=== PATIENT | female | born 1995 | race African-American/Black ===

== ENCOUNTER 2020-07-16 18:17 | Observation (INO) | payer BC, MEDICAID, SELFPAY ==
--- NOTE | ~2020-07-16 | XR_ITS ---
EXAMINATION: XR chest 1V portable DATE: 07/16/2020 19:00 INDICATION: Shortness of breath. Pulmonary hypertension. TECHNIQUE: frontal view of the chest was obtained. COMPARISON: 03/29/2019 FINDINGS: The lungs remain clear with no focal airspace opacities, pulmonary edema, pleural effusion or pneumot horax. Cardiomegaly. Again seen is enlargement of the central pulmonary arteries consistent with give n history of pulmonary arterial hypertension. IMPRESSION: 1. No acute cardiopulmonary disease. 2. Cardiomegaly with enlargement of the central pulmonary arteries consistent with given history of p ulmonary arterial hypertension. Reviewed, dictated and finalized at location H. T TEACHER IMPRESSION: 1. No acute cardiopulmonary disease. 2. Cardiomegaly with enlargement of the central pulmonary arteries consistent w ith given history of pulmonary arterial hypertension.
--- NOTE | ~2020-07-16 | CT_ITS ---
EXAMINATION: CTA chest PE protocol DATE: 07/16/2020 21:02 INDICATION: Chest pain and dyspnea TECHNIQUE: Computed tomography (CT) pulmonary angiogram of the chest was performed with 100 mL Omnipa que-350 intravenous contrast. Additional 3D reconstructions utilizing coronal maximum intensity proje ction (MIP) were performed. Automated exposure control and iterative reconstruction technique were em ployed. The dose-length product was 922.52 mGy-cm. COMPARISON: None FINDINGS: Excellent contrast opacification of the pulmonary arteries. There is prominent streak artifact from d ense contrast in the superior vena cava and right atrium as well as severe scattered respiratory nhi on artifact which together significantly decreases sensitivity and specificity throughout the majorit y of the pulmonary arteries in both lungs. Definitively no central pulmonary emboli in the main, loba r and in the upper lobar segmental pulmonary arteries. The majority of the pulmonary arteries demonst rate alternating bands of enhancement and low-attenuation which favors artifact. No definitive pulmon juancarlos emboli identified. There are multiple small nodular regions of groundglass opacity scattered thro ughout both lungs most prominent in the bilateral upper and left lower lobes which are suspicious for pneumonia. No evidence septal line thickening to suggest pulmonary edema. No pleural effusion or pne umothorax. Cardiomegaly. No pericardial effusion. Chronic enlargement of the central pulmonary arteri es consistent with given history of pulmonary hypertension. Thoracic aorta is normal in caliber with no dissection. No pathologically enlarged thoracic lymphadenopathy. Stranding and small foci of gas i n the subcutaneous fat at the anterior midline of the upper abdomen likely related to a subcutaneous injection. Visualized upper abdomen and bones are otherwise unremarkable. IMPRESSION: 1. Markedly limited study for pulmonary embolism due to large amount of streak and respiratory motion artifact. No definitive pulmonary identified. 2. Multiple scattered nodular groundglass opacities consistent with multifocal pneumonia. 3. Cardiomegaly with enlargement of the central pulmonary arteries consistent with known history of p ulmonary arterial hypertension. Reviewed, dictated and finalized at location H. NDER DYER IMPRESSION: 1. Markedly limited study for pulmonary embolism due to large amount of streak and respiratory motion artifact. No definitive pulmonary identified. 2. Multiple scattered nodular groundglass opacities consistent with multifocal pneumonia. 3. Cardiomegaly with enlargement of the central pulmonary arteries consistent w ith known history of pulmonary arterial hypertension.
[2020-07-16 18:20] VITALS: BP 133/64; PULSE 86; RESP 14; TEMP 36.1; O2SAT 99
[2020-07-16 18:26] VITALS: PULSE 95
--- NOTE | 2020-07-16 18:29 | ECG_ITS ---
Measurements Intervals [place] Rate: 77 P: 47 MA: 185 QRS: 69 QRSD: 98 T: -24 QT: 390 QTc: 443 Interpretive Statements SINUS RHYTHM ST-T WAVE ABNORMALITY IN ANTERIOR LEADS- CONSIDER ISCHEMIA BASELINE ARTIFACT- I, II, AVR, AVL ABNORMAL ECG Electronically Signed On 07-17-2020 7:19:02 ROTARY KILN OPERATOR by Charanjit Arreola D.O.
[2020-07-16 18:39] LABS: Basophils Percent Auto 0.2 % (0.2-1.2); Eosinophils Absolute Auto 0.1 K/mm3 (0-0.3); Eosinophils Percent Auto 1.1 % (0-4.4); Hematocrit 36.9 % (37.0-47.0); Hemoglobin 12.7 g/dL (12.0-15.0); Immature Granulocyte Absolute 0.01 K/mm3 (0.00-0.031); Immature Granulocyte Percent A 0.2 % (0-0.5); Lymphocytes Absolute Auto 1.78 K/mm3 (0.9-3.2); Lymphocytes Percent Auto 28.1 % (18.3-44.2); Mean Corpuscular HGB Conc 34.4 g/dl (32-36); Mean Corpuscular Hemoglobin 29.6 pg (26-34); Mean Platelet Volume 9.5 fl (7.4-10.4); Monocytes Absolute Auto 0.5 K/mm3 (0.1-0.6); Monocytes Percent Auto 7.4 % (2.6-8.5); Platelet Count Result 361 k/mm3 (150-375); Red Blood Count 4.29 M/mm3 (4.2-5.4); Red Cell Distribution Width 12.8 % (11.5-14.5); White Blood Count 6.3 K/mm3 (4.5-10.0)
--- NOTE | 2020-07-16 18:48 | PC.NURSE ---
Called to add on BNP
[2020-07-16 18:51] LABS: Anion Gap 9 mmol/L (8-16); Blood Urea Nitrogen 6 mg/dL (7-17); Carbon Dioxide 28 mmol/L (22-30); Chloride 102 mmol/L (98-107); Estimated CRCL calculation 168 ml/min; Estimated Glomerular Filt Rate > 60; Glucose 120 mg/dL (65-105); Sodium 139 mmol/L (137-145)
[2020-07-16 18:54] LABS: INR 1.1; Prothrombin Time 14.3 Seconds (11.1-14.7)
[2020-07-16 18:55] LABS: Partial Thromboplastin Time 27.7 SECONDS (22.3-36.8)
[2020-07-16 18:57] LABS: D Dimer 0.31 ug/mL (<0.48)
[2020-07-16 19:03] LABS: Troponin I < 0.012 ng/mL (0.000-0.034)
[2020-07-16 19:15] VITALS: BP 107/87; PULSE 76; RESP 16; O2SAT 98
[2020-07-16 19:29] LABS: NT Pro B Type Natriuretic Pept 67 PG/ML (5-100)
--- NOTE | 2020-07-16 19:58 | ECG_ITS ---
Measurements Intervals [place] Rate: 65 P: 27 VA: 180 QRS: 64 QRSD: 93 T: -26 QT: 403 QTc: 421 Interpretive Statements SINUS RHYTHM WITH MARKED SINUS ARRHYTHMIA ST-T WAVE ABNORMALITY IN ANTERIOR LEADS- CONSIDER ISCHEMIA BASELINE ARTIFACT- I, II, AVR, AVL, V1 ABNORMAL ECG Electronically Signed On 07-17-2020 7:23:30 GENERAL FARMWORKER by Charanjit Arreola D.O.
--- NOTE | 2020-07-16 20:01 | ED.SOB ---
HPI - SOB/Dyspnea General Chief Complaint: Shortness of Breath/Dyspnea Stated Complaint: my breathing feels funny Time Seen by Provider: 07/16/20 19:05 Source: RN notes reviewed History of Present Illness HPI Narrative: Patient presents to emergency department from home for shortness of breath. Patient states that symptoms began approximately 3 days ago. She states that she has a feeling of shortness of breath as well as a chest heaviness that occurs when she lays down flat. She states that the symptoms improve when she sits upright. She states she has had a cough this been nonproductive for the past week. She denies any fevers or chills abdominal pain nausea vomiting or any other symptoms she states she has no current chest pain was sitting up Related Data Home Medications Medication Instructions Recorded Confirmed furosemide 07/16/20 macitentan [Opsumit] mg PO 07/16/20 spironolactone 07/16/20 tadalafil (pulm. hypertension) mg 07/16/20 treprostinil sodium [Remodulin] mg 07/16/20 07/16/20 Allergies Allergy/AdvReac Type Severity Reaction Status Date / Time No Known Allergies Allergy Verified 07/16/20 18:27 Review of Systems Review of Systems: Narrative: Gen.: Denies fevers or chills ENT: Denies congestion Respiratory: Reports shortness of breath CV: Reports cough GI: Denies abdominal pain nausea, emesis or diarrhea denies burning, urgency, frequency or hematuria Musculoskeletal: Denies back pain or muscle pain Neuro: Denies numbness, tingling, weakness or focal weakness Skin: Denies rash Except as documented, all other systems reviewed and negative [facility] Past Medical History Medical History (Updated 07/17/20 @ 01:43 by Alex Castellanos DO) Chronic edema Pulmonary hypertension Social History Social History (Updated 07/16/20 @ 20:02 by Alex Castellanos DO) Smoking status: Never smoker Exam Narrative: Exam Narrative: APPEARANCE: No acute distress, nontoxic, resting in bed EYES: EOMI HEENT: Normocephalic, atraumatic, OMM RESPIRATORY: No respiratory distress Clear to auscultation bilaterally with no rhonchi wheezing or rales. CARDIOVASCULAR: Regular rate and rhythm without murmurs rubs or gallops. ABDOMINAL: Soft, nontender, nondistended, no rebound or guarding MUSCULOSKELETAl: Moves all extremities. No clubbing, cyanosis 2+ edema the bilateral lower extremity NEURO: Awake and alert. Following commands, speech normal, no focal deficits SKIN:: Warm, dry. No rashes lesions or abrasions PSYCHIATRIC: Normal affect/mood, Course Course Emergency Course: Discussed with Dr. Caballero presentation work-up agrees with admission at this time. Request consult to cardiology Dr. Bacon for cardiology presentation work-up discussed EKG changes will follow as inpatient Discussed with patient and family results of workup and diagnosis. Discussed need for admission. Patient and family understand and agree to current treatment plan Vital Signs Vital signs: Vital Signs Temperature 96.9 F L 07/16/20 18:20 Pulse Rate 86 07/16/20 18:20 Respiratory Rate 14 07/16/20 18:20 Blood Pressure 133/64 07/16/20 18:20 Pulse Oximetry 99 07/16/20 18:20 Temperature 96.9 F L 07/16/20 18:20 Pulse Rate 66 07/17/20 00:21 Respiratory Rate 20 07/17/20 00:21 Blood Pressure 144/85 H 07/17/20 00:21 Pulse Oximetry 98 07/17/20 00:21 MDM - SOB/Dyspnea Lab Data Result diagrams: 07/16/20 18:34 07/16/20 18:34 Labs: Lab Results 07/16/20 07/16/20 07/16/20 Range/Units 18:33 18:33 18:34 WBC 6.3 (4.5-10.0) K/mm3 RBC 4.29 (4.2-5.4) M/mm3 Hgb 12.7 (12.0-15.0) g/dL Hct 36.9 L (37.0-47.0) % MCV 86.0 (80-100) fl MCH 29.6 (26-34) pg MCHC 34.4 (32-36) g/dl RDW 12.8 (11.5-14.5) % Plt Count 361 (150-375) k/mm3 MPV 9.5 (7.4-10.4) fl Immature Gran % (Auto) 0.2 (0-0.5) % Neut % (Auto) 63.0 (45.5-73.1) % Lymp
[2020-07-16 21:58] LABS: Troponin I < 0.012 ng/mL (0.000-0.034)
[2020-07-16 22:40] LABS: Lactic Acid Reflex 0.7 mmol/L (0.7-2.1)
[2020-07-16 23:07] VITALS: BP 109/65; PULSE 76; RESP 20; O2SAT 98
[2020-07-16] MEDS: POTASSIUM CHLORIDE 20 MEQ TABLET 40 MEQ PO (23:20)
[2020-07-16] MEDS: ASPIRIN 81 MG CHEWABLE TABLET 324 MG PO (23:20)
[2020-07-17 00:03] VITALS: BMI 47.0
[2020-07-17 00:21] VITALS: BP 144/85; PULSE 66; RESP 20; O2SAT 98
--- NOTE | 2020-07-17 00:24 | ADMGEN ---
This patient, Stephanie Simpson, was admitted to IMU Room 211-01 @ 0003 from the Emergency department. Patient/family oriented to hospital policies and general routines including ID bracelet, bed and alarms, visiting hours, pain management, procedures, bathroom and other care routines, personal items, smoking policy, room service/diet, and visiting hours. Information on how to activate the Rapid Response Team has been discussed. Patient/Family are encouraged to report perceived risks to care and to ask questions if they do not understand what they are told or what they should do.
--- NOTE | 2020-07-17 00:29 | PM.IMHP ---
H&P: HPI History of Present Illness Date/Time: 07/17/20 00:29 Chief complaint: covid 19 suspected, abnormal ekg, chest pain Narrative: This is a pleasant 25 year old female with known pulmonary hypertension and chronic edema who presented to the hospital with a complaint of ongoing shortness of breath with associated pleuritic chest pain. She complains of having chest heaviness with deep breathing. She has had respiratory symptoms for almost two weeks now which include a nonproductive cough, congestion, shortness of breath, chills, body aches, and loss of taste. She was tested at Urgent Care for COVID-19 ten days ago which was negative at that time. The patient was evaluated in the ER tonight and found to have an abnormal EKG with flipped T waves in precordial leads. Routine labs in the ER have been unremarkable. CTA Chest did not demonstrate any pulmonary embolism. Her first two troponins have been negative. The patient is not requiring any supplemental oxygen and is comfortable in no acute distress. ER provider has consulted Cardiology, Dr. Bacon and we have been asked to admit the patient to the hospital for her abnormal EKG. She denies any smoking history. Review of Systems Review of Systems: All systems reviewed & are unremarkable except as noted in HPI and below PMFSH Past Medical History Medical History Chronic edema Pulmonary hypertension Family History Family History Mother Thyroid cancer Social History Social History Smoking status: Never smoker Second hand tobacco smoke exposure: No Alcohol intake: never Substance use: never Gender identity (if verbalized by the patient): Female Spiritual care concerns: No Comments past surgical history is reviewed and noncontributory. Meds Home Medications and Allergies Home Medications Medication Instructions Recorded Confirmed Type Opsumit mg PO 07/16/20 History furosemide [Lasix] 20 mg PO BID 07/16/20 07/17/20 History spironolactone [Aldactone] 25 mg PO BID 07/16/20 07/17/20 History tadalafil (pulm. hypertension) 20 mg PO BID 07/16/20 07/17/20 History [Adcirca] treprostinil sodium [Remodulin] 10 mg 07/16/20 History Allergies Allergy/AdvReac Type Severity Reaction Status Date / Time No Known Allergies Allergy Verified 07/17/20 04:00 Vital Signs Vital Signs - 24 hr 07/16/20 18:20 07/16/20 18:26 07/16/20 19:15 Temperature 36.1 C L Pulse Rate 86 95 76 Respiratory Rate 14 16 Blood Pressure 133/64 107/87 Pulse Oximetry 99 98 07/16/20 23:07 07/17/20 00:21 Temperature Pulse Rate 76 66 Respiratory Rate 20 20 Blood Pressure 109/65 144/85 H Pulse Oximetry 98 98 Exam Const: General: cooperative, no acute distress, alert and awake Nutritional Appearance: obese morbidly obese Orientation/consciousness: patient oriented x3 HENMT: Head: normal to inspection General nose exam: Normal external nose present Face and sinus: normal facial exam Mouth: Yes Normal oral and palatal mucosa present and Yes oropharynx normal Eyes: Pupils: Equal, round and reactive pupils present EOM: EOMs intact bilaterally Neck: Neck: supple and no JVD Thyroid: thyroid normal Lymphatic: lymphadenopathy not noted Chest: Other: No chest wall discomfort w/ palpation+ Resp: Effort & Inspection: normal respiratory effort Auscultation: clear to auscultation bilaterally Cardio: Rate: regular rate Rhythm: regular rhythm Heart sounds: no murmurs GI: Inspection: normal to inspection Auscultation: normal bowel sounds Skin: General skin exam: normal color and no rashes or lesions noted Neuro: General: patient oriented x3 Cranial nerves: Yes CN's II-XII intact bilaterally and Yes Equal, round and reactive pupils present Speech: normal speech Motor exam (neuro): 5/5 m
[2020-07-17 02:00] VITALS: PULSE 81
[2020-07-17 02:13] LABS: Basophils Percent Auto 0.2 % (0.2-1.2); Eosinophils Absolute Auto 0.1 K/mm3 (0-0.3); Eosinophils Percent Auto 1.8 % (0-4.4); Hematocrit 37.4 % (37.0-47.0); Hemoglobin 12.6 g/dL (12.0-15.0); Immature Granulocyte Absolute 0.02 K/mm3 (0.00-0.031); Immature Granulocyte Percent A 0.3 % (0-0.5); Lymphocytes Percent Auto 31.8 % (18.3-44.2); Mean Corpuscular HGB Conc 33.7 g/dl (32-36); Mean Corpuscular Volume 86.2 fl (80-100); Mean Platelet Volume 9.8 fl (7.4-10.4); Monocytes Absolute Auto 0.5 K/mm3 (0.1-0.6); Monocytes Percent Auto 7.5 % (2.6-8.5); Neutrophils Absolute Auto 3.5 K/mm3 (1.3-6.7); Neutrophils Percent Auto 58.4 % (45.5-73.1); Platelet Count Result 368 k/mm3 (150-375); Red Blood Count 4.34 M/mm3 (4.2-5.4); Red Cell Distribution Width 12.9 % (11.5-14.5)
[2020-07-17 02:22] LABS: Anion Gap 8 mmol/L (8-16); Blood Urea Nitrogen 6 mg/dL (7-17); Calcium 9.1 mg/dL (8.4-10.2); Carbon Dioxide 29 mmol/L (22-30); Chloride 101 mmol/L (98-107); Estimated CRCL calculation 168 ml/min; Estimated Glomerular Filt Rate > 60; Glucose 108 mg/dL (65-105); Potassium 3.1 mmol/L (3.4-5.0); Sodium 138 mmol/L (137-145)
[2020-07-17 02:30] LABS: Troponin I < 0.012 ng/mL (0.000-0.034)
[2020-07-17 04:00] VITALS: BP 104/54; PULSE 78; PULSE 86; RESP 18; TEMP 36.6; O2SAT 93
[2020-07-17 06:00] VITALS: PULSE 66
[2020-07-17 08:00] VITALS: BP 120/74; PULSE 77; RESP 18; TEMP 36.3; O2SAT 93
[2020-07-17 08:59] VITALS: O2SAT 96
[2020-07-17] MEDS: ALBUTEROL SULFATE (*SP) AEROSOL 1 PUFF 2 PUFF INHALATION ×2 (08:59→12:00)
--- NOTE | 2020-07-17 10:08 | PM.DS ---
DS: Admitting Diagnosis Admitting Diagnosis Admitting Diagnosis: covid 19 suspected, abnormal ekg, chest pain DS: Discharge Diagnosis Discharge Diagnosis (1) Suspected 2019-nCoV infection: Code(s): Z20.828 - Contact with and (suspected) exposure to other viral communicable diseases Status: Acute Assessment and Plan: Ruled in Patient wants to go home after spending the night here. Feels that she can handle at home. (2) Hypokalemia: Code(s): E87.6 - Hypokalemia Status: Acute Assessment and Plan: Replaced (3) Pleuritic chest pain: Code(s): R07.81 - Pleurodynia Status: Acute Assessment and Plan: Likely secondary to Covid Stable. (4) Pulmonary hypertension: Code(s): I27.20 - Pulmonary hypertension, unspecified Status: Chronic Assessment and Plan: Not requiring oxygen at this time. DS: Summary Hospital Course Reason for hospitalization: Was placed on observation overnight for supportive care as patient was having some sob, general malaise and fevers. In the morning she was feeling much better and was comfortable on going home. Status at Discharge Cognitive/behavioral status at discharge: Good. Functional status at discharge: independent ambulation Overall status at discharge: patient is progressing back to baseline Time Spent with Patient Time attestation: Total time spent providing and/or coordinating discharge services: Time spent: Greater than 30 minutes DS: Data Data Completed and Pending Labs on day of discharge: Labs from last 24 hours 07/17/20 07/17/20 07/17/20 01:56 01:56 01:52 WBC 6.0 RBC 4.34 Hgb 12.6 Hct 37.4 MCV 86.2 MCH 29.0 MCHC 33.7 RDW 12.9 Plt Count 368 MPV 9.8 Immature Gran % (Auto) 0.3 Neut % (Auto) 58.4 Lymph % (Auto) 31.8 [place] % (Auto) 7.5 Eos % (Auto) 1.8 Baso % (Auto) 0.2 Lymph # (Auto) 1.90 [place] # (Auto) 0.5 Eos # (Auto) 0.1 Baso # (Auto) 0.0 Abs Immat Gran (auto) 0.02 Absolute Neuts (auto) 3.5 Absolute Nucleated RBC 0.0 Nucleated RBC % 0.0 PT INR APTT D-Dimer Sodium 138 Potassium 3.1 L Chloride 101 Carbon Dioxide 29 Anion Gap 8 BUN 6 L Creatinine 0.60 L Estim Creat Clear Calc 168 Estimated GFR > 60 Glucose 108 H Lactic Acid Calcium 9.1 Troponin I < 0.012 NT-Pro-B Natriuret Pep SARS-CoV-2 RNA (RT-PCR) 07/16/20 07/16/20 07/16/20 23:28 22:11 21:30 WBC RBC Hgb Hct MCV MCH MCHC RDW Plt Count MPV Immature Gran % (Auto) Neut % (Auto) Lymph % (Auto) [place] % (Auto) Eos % (Auto) Baso % (Auto) Lymph # (Auto) [place] # (Auto) Eos # (Auto) Baso # (Auto) Abs Immat Gran (auto) Absolute Neuts (auto) Absolute Nucleated RBC Nucleated RBC % PT INR APTT D-Dimer Sodium Potassium Chloride Carbon Dioxide Anion Gap BUN Creatinine Estim Creat Clear Calc Estimated GFR Glucose Lactic Acid 0.7 Calcium Troponin I < 0.012 NT-Pro-B Natriuret Pep SARS-CoV-2 RNA (RT-PCR) Pending 07/16/20 07/16/20 07/16/20 18:34 18:34 18:33 WBC 6.3 RBC 4.29 Hgb 12.7 Hct 36.9 L MCV 86.0 MCH 29.6 MCHC 34.4 RDW 12.8 Plt Count 361 MPV 9.5 Immature Gran % (Auto) 0.2 Neut % (Auto) 63.0 Lymph % (Auto) 28.1 [place] % (Auto) 7.4 Eos % (Auto) 1.1 Baso % (Auto) 0.2 Lymph # (Auto) 1.78 [place] # (Auto) 0.5 Eos # (Auto) 0.1 Baso # (Auto) 0.0 Abs Immat Gran (auto) 0.01 Absolute Neuts (auto) 4.0 Absolute Nucleated RBC 0.0 Nucleated RBC % 0.0 PT INR APTT D-Dimer Sodium 139 Potassium 3.0 L Chloride 102 Carbon Dioxide 28 Anion Gap 9 BUN 6 L Creatinine 0.60 L Estim Creat Clear Calc 168 Estimated GFR > 60 Glucose 120 H Lactic Acid Calci
--- NOTE | 2020-07-17 10:38 | PM.CNCAR ---
Assessment and Plan Assessment and plan (1) Suspected 2019-nCoV infection: Code(s): Z20.828 - Contact with and (suspected) exposure to other viral communicable diseases Status: Acute Assessment and Plan: Very likely COVID infection (2) Hypokalemia: Code(s): E87.6 - Hypokalemia Status: Acute Assessment and Plan: Replaced (3) Pulmonary hypertension: Code(s): I27.20 - Pulmonary hypertension, unspecified Status: Chronic Assessment and Plan: Severe. Followed at [place]. (4) Abnormal EKG: Code(s): R94.31 - Abnormal electrocardiogram [ECG] [EKG] Status: Acute Assessment and Plan: Her EKG ST and T-wave changes are related to her pulmonary hypertension. They are not ischemic from obstructive coronary disease. Her EKG looks similar to an EKG performed in June of 2019 at [place]. Her chest pain is not cardiac in etiology. It is likely pleuritic or musculoskeletal from her coughing. Discontinue the echocardiogram which is ordered and from a cardiac perspective she is okay to go home History of Present Illness History of Present Illness Consult date/time: 07/17/20 10:38 Requesting physician: Alex Castellanos DO Consult reason: Other (Abnormal EKG, chest pain) Reason For Visit: covid 19 suspected, abnormal ekg, chest pain Narrative: Date of service 07/17/2020 Reason for consultation abnormal EKG, chest pain History patient is a 25-year-old female who has idiopathic pulmonary hypertension. It is severe and she follows at [facility]. She came to the hospital because of COVID like symptoms. She has been short of breath as well as cough and congestion with body aches chills and loss of taste for the past 10-14 days. She also had some chest pain. Chest pain was pleuritic and worsened by coughing. EKG was performed which showed anteroseptal T-wave abnormalities. This is thought to be new and therefore she was admitted for further workup. She has COVID pending. She otherwise denies any exertional chest discomfort, syncope, paroxysmal nocturnal dyspnea, orthopnea. She does have intermittent edema but none present. No palpitations. Review of Systems Review of Systems: All systems reviewed & are unremarkable except as noted in HPI and below Constitutional: Constitutional: Reports body ache(s), Reports chills, Reports lethargy and Reports weakness Eyes: Eyes: Denies blurry vision ENT: Reports Normal hearing present Cardiovascular: Cardiovascular: Reports chest pain Respiratory: Respiratory: Reports dyspnea Gastrointestinal: Gastrointestinal: Denies abdominal pain Genitourinary: Genitourinary: Denies flank pain Musculoskeletal: Musculoskeletal: Denies neck pain Integumentary/Breasts: Skin/Breast: Denies dry skin Neurologic: Denies headache(s) Psychiatric: Psychiatric: Denies anxiety Endocrine: Endocrine: Denies fatigue Hematologic/Lymphatic: Hematologic/Lymphatic: Denies easy bleeding Allergic/Immunologic: Allergic/Immunologic: Denies GI upset with certain foods PMFSH Past Medical History Medical History Chronic edema Pulmonary hypertension Family History Family History Mother Thyroid cancer Social History Social History Smoking status: Never smoker Second hand tobacco smoke exposure: No Alcohol intake: never Substance use: never Gender identity (if verbalized by the patient): Female Spiritual care concerns: No Meds Home Medications and Allergies Home Medications Medication Instructions Recorded Confirmed Type furosemide [Lasix] 20 mg PO BID 07/16/20 07/17/20 History macitentan [Opsumit] mg PO 07/16/20 History spironolactone [Aldactone] 25 mg PO BID 07/16/20 07/17/20 History tadalafil (pulm. hypertension) 20 mg PO BID 07/16/20 07/17/20 Histor
[2020-07-17 16:41] LABS: SARS-CoV-2 RNA PCR Positive
== END 2020-07-17 13:03 | disposition home or self-care (01) ==
LOC: ANHED 22:43 → ANHIMU 07-17 01:43
PROVIDERS: Emergency Medicine; Admitting Provider Family Medicine; Emergency Provider Emergency Medicine; Visit Provider Internal Medicine
DX: U07.1 COVID-19 (principal); E87.6 Hypokalemia; I27.20 Pulmonary hypertension, unspecified; R94.31 Abnormal electrocardiogram [ECG] [EKG]; E66.01 Morbid (severe) obesity due to excess calories; Z68.42 Body mass index [BMI] 45.0-49.9, adult
CPT/HCPCS: 36415; 71045; 71275; 80048; 81025; 83605; 83880; 84484; 85025; 85380; 85610; 85730; 87040; 87635; 93005; 94640; 99285; A9270; C9803; G0378; Q9967; U0003

== ENCOUNTER 2025-04-30 10:34 | Emergency (ER) | payer OTHER, SELFPAY ==
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
--- OUTSIDE RECORDS SUMMARY | 2025-04-30 10:37 | XMS_ITS | Clinical Summary ---
Author Organization [facility] Address [address] [place] [address] Phone Care Team Providers Care Rodeo Performer Name Role Phone Unavailable Primary Care Provider Unavailabl e Allergies No known active allergies Medications aspirin (ECOTRIN EC) 325 mg Tablet, Delayed Release (E.C.) Take 1 Tablet (325 mg) by mouth daily. 9 Active Ambrisentan 5 mg Tablet Take 5 mg by mouth daily. 1 Tablet 9 Active furosemide (LASIX) 20 mg tablet Take 1 Tablet (20 mg) by mouth 2 times daily. 30 Tablet 1 9 Active azelastine (ASTELIN) 137 mcg/actuation nasal spray Administer 2 Sprays in each nostril 2 times daily. 30 mL 5 9 Active tadalafil (Adcirca) 20 mg Tablet tablet Take 2 Tablets (40 mg) by mouth daily. 60 Tablet 0 Active Active Problems Problem Noted Date Diagnosed Date THOMPSON (dyspnea on exertion) 03/30/2019 Chest pressure 03/30/2019 Morbid obesity 03/30/2019 Pulmonary hypertension 03/30/2019 Encounters Date Type Department Care Team Description 03/30/2025 External Device Data [facility] ABSTRACTION Provider, Abstract 03/29/2025 External Device Data [facility] ABSTRACTION Provider, Abstract 03/09/2025 External Device Data [facility] ABSTRACTION Provider, Abstract 03/08/2025 External Device Data [facility] ABSTRACTION Provider, Abstract 02/22/2025 External Device Data [facility] ABSTRACTION Provider, Abstract from Last 3 Months Family History Medical History Relation Name Comments Diabetes Mother Heart Disease Mother Hypertension Mother Stroke Mother Thyroid Disease Mother Thyroid Disease Paternal Grandmother Heart Disease Sister Relation Name Status Comments Mother Alive Paternal Grandmother Sister Alive Social History Tobacco Use Types Packs/Day Years Used Date Smoking Tobacco: Never Smokeless Tobacco: Never Alcohol Use Standard Drinks/Week Comments Yes 1 (1 standard drink = 0.6 oz pur e alcohol) Comments No Sex and Gender Information Value Date Recorded Sex Assigned at Not on file Legal Sex Female 10:50 AM CDT Gender Identity Not on file Sexual Orientation Not on file Last Filed Vital Signs Vital Sign Reading Time Taken Comments Blood Pressure 116/60 06/22/2019 10:14 AM CDT Pulse 96 06/22/2019 10:14 AM CDT Temperature 36.7 C (98 F) 04/04/2019 9:00 AM CDT Respiratory Rate 17 06/22/2019 10:1 4 AM CDT Oxygen Saturation 96% 06/22/2019 10: 14 AM CDT RA Inhaled Oxygen Concentration - - Weight 138.6 kg (305 lb 9.6 oz) 019 10:14 AM CDT Height 170.2 cm (5' 7) 06/22/2019 10:1 4 AM CDT Body Mass Index 47.86 06/22/2019 10:14 AM CDT Plan of Treatment Health Maintenance Due Date Last Done Comments HEPATITIS B VACCINES (3 of 3 - 3-dose series) 1994 1994, 1994 HPV/Cotest (21-29) 2015 CERVICAL CANCER SCREENING 2024 HPV/Cotest (30-65) 2024 PAP SMEAR 2024 INFLUENZA VACCINE (#1) 2025 06/18/2017, 2014 DTAP/TDAP/TD VACCINES (3 - T d or Tdap) 08/21/2027 08/21/2017, 07/03/1998 HPV VACCINES Completed 09/02/2012, 08/2011, 11/26/2011 Insurance [place] Member Subscriber Plan / Payer (Ef fective 2021-Present) Name:Stephanie Simpson Relation to Subscriber:Self Name:Stephanie Simpson Payer ID:Not on file Group ID:Not on file Type:Medicaid Address: [address] [employer]UE ACC[employer] CHOICE [employer] [place] [employer] (INTERNAL) [facility] Internal Plans Advance Directives For more information, please contact: [phone] * Full Code (Latest Code Status on File) Date Activated Date Inactivated Comments 03/30/2019 9:55 PM 04/04/2019 1:39 PM
--- OUTSIDE RECORDS SUMMARY | 2025-04-30 10:37 | XMS_ITS | Clinical Summary ---
Author Organization [facility] Address [address] [place] [address] Care Team Providers Care School Plant Consultant Name Role Phone Unavailable Primary Care Provider Unavailabl e Source Comments [facility],non-owned Affiliates and Associated Physician Practices is amultiple site organization consisting of ambulatory clinics and hospital sitesin [place], [place], [place] and [place]. This disclosure is being madepursuant to the Care Everywhere program and may not contain all information available regarding this patient. Last updated 18.[facility] [employer] Active Problems Problem Noted Date Diagnosed Date Pulmonary hypertension 03/30/2019 Social History Tobacco Use Types Packs/Day Years Used Date Smoking Tobacco: Never Assessed Comments Unknown Sex and Gender Information Value Date Recorded Sex Assigned at Not on file Legal Sex Female 10:12 AM CDT Gender Identity Not on file Sexual Orientation Not on file Plan of Treatment Health Maintenance Due Date Last Done Comments HIV SCREENING 2009 HEPATITIS C SCREENING 06/24/2012 DTAP/TDAP/TD VACCINES (1 - Tdap) 2013 HEPATITIS B VACCINE (1 of 3 - 19+ 3-dose series) 2013 PAP SMEAR 2015 HPV VACCINE (1 - 3-dose SCDM series) 2021 DEPRESSION SCREENING 08/25/2024 COVID-19 VACCINE ( - 2023-2 5 season) 2025 INFLUENZA VACCINE (#1) 2025 9, 06/18/2017, 08/03/2015 ZOSTER VACCINE (1 of 2) 2044 HIB VACCINE Aged Out No longer eligi ble based on patient's age to complete this topic MENINGOCOCCAL (Group B) VACCINE SHARED DECISION-MAKING Aged Out No longer eligible based on patient's age to complete this topic MENINGOCOCCAL GROUPS A/C/Y/W VACCINE Aged Out No longer eligible b ased on patient's age to complete this topic PNEUMOCOCCAL VACCINE Aged Out No long er eligible based on patient's age to complete this topic
[2025-04-30 10:42] VITALS: BP 134/86; PULSE 109; RESP 16; TEMP 36.4; O2SAT 96
--- OUTSIDE RECORDS SUMMARY | 2025-04-30 12:44 | XMS_ITS | Encounter Summary ---
Author Organization [facility] Address [address] [place] [address] Phone Care Team Providers Care Feed Research Technician Name Role Phone Torres Vickers MD Unavailable [phone] Des Son MD Primary Care Provider [phone] Encounter Details Date Type Department Care Team (Late st Contact Info) Description 03/31/2025 Results Follow-Up [facility] Medicine Pulmonary [address] 8th [place] [address] [place] [phone] Torres Vickers MD [address] [place] [address] CBC with auto differential, Differential, auto Social History Tobacco Use Types Packs/Day Years Used Date Smoking Tobacco: Never Smokeless Tobacco: Never Alcohol Use Standard Drinks/Week Comments Not Currently 0 (1 standard drink = 0.6 oz pur e alcohol) OASIS D0700: Social Isolation Answer Da te Recorded Frequency of experiencing loneliness or isolatio n Never 12/25/2023 OASIS A1250: Transportation Answer Date Recorded Lack of Transportation (Medical) No 12/25/2023 Lack of Transportation (Non-Medical) No 12/25/2023 Patient Unable or Declines to Respond No 12/25/2023 OASIS B1300: Health Literacy Answer Chago e Recorded Frequency of needing help to read materials from doctor or pharmacy Never 12/25/2023 [facility] Utilities Answer Date Recorded In the past 12 months has th e electric, gas, oil, or water [employer] threatened to shut off services in your home? No 12/24/2023 Social Connection and Isolation Panel Answer Date Recorded In a typical week, how many times do you talk on the phone with family, friends, or neighbors? More than three times a week 12/24/2023 How often do you get togethe r with friends or relatives? More than three times a week 12/24/2023 How often do you attend chur ch or sabianism services? Never 12/24/2023 Do you belong to any clubs o r organizations such as scientology groups, unions, fraternal or athletic groups, or school groups? No 12/24/2023 How often do you attend meet ings of the clubs or organizations you belong to? Never 12/24/2023 Are you , , di vorced, , never , or living with a partner? 12/24/2023 AUDIT-C Answer Date Recorded Q1: How often do you have a drink containing alc ohol? Never 01/22/2024 Average Number of Drinks Not on file 024 Frequency of Binge Drinking Not on file 12/25 Overall Financial Resource Strain (CARDIA) Answe r Date Recorded How hard is it for you to pa y for the very basics like food, housing, medical care, and heating? Not hard at all 12/24/2023 PHQ-2 Answer Date Recorded PHQ-2 Total Score (If total score is 3 or more points, staff should administer the PHQ-9) 0 07/06/2024 Hunger Vital Sign Answer Date Recorded Within the past 12 months, y ou worried that your food would run out before you got the money to buy more. Never true 12/24/19 24 Within the past 12 months, t he food you bought just didn't last and you didn't have money to get more. Never true 12/24/2023 PRAPARE - Transportation Answer Date Re corded In the past 12 months, has l ack of transportation kept you from medical appointments or from getting medications? No 08/2023 In the past 12 months, has l ack of transportation kept you from meetings, work, or from getting things needed for daily living? No 12/24/2023 Housing Stability Vital Sign Answer Chago e Recorded In the last 12 months, was t here a time when you were not able to pay the mortgage or rent on time? No 12/24/2023 In the last 12 months, how many places have you lived? 1 12/24/2023 In the last 12 months, was t here a time when you did not have a steady place to sleep or slept in a residential (including now)? No 12/24/2023 Personal Safety Answer Date Recorded Have you ever been in or are you currently in a harmful physical or emotional relationship or is someone making you feel afraid or unsafe? Denies 01/27/2024 Education Answer Date Recorded What is the highest level of school you have completed or the highest degree you have received? 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
--- OUTSIDE RECORDS SUMMARY | 2025-04-30 12:44 | XMS_ITS | Clinical Summary ---
Author Organization [facility] Address [address] [place] [address] Phone Care Team Providers Care Incubator Tender Name Role Phone Unavailable Primary Care Provider [...] file Group ID:Not on file Type:Medicaid Address: [address] BLUE ACC[employer] CHOICE [employer] (INTERNAL) [facility] Internal Plans Advance Directives For more information, please contact: [phone] * Full Code (Latest Code Status on File) Date Activated Date Inactivated Comments 03/30/2019 9:55 PM 04/04/2019 1:39 PM
--- OUTSIDE RECORDS SUMMARY | 2025-04-30 12:44 | XMS_ITS | Clinical Summary ---
Author Organization [facility] Address [address] [place] [address] Care Team Providers Care Pension Fund Manager Name Role Phone Unavailable Primary Care Provider Unavailabl e Source Comments [facility],non-owned Affiliates and Associated Physician Practices is amultiple site organization consisting of ambulatory clinics and hospital sitesin [place], [place], [place] and [place]. This disclosure is being madepursuant to the Care Everywhere program and may not contain all information available regarding this patient. Last updated 18.[facility] [employer] Active Problems Problem Noted Date Diagnosed Date [...]
--- OUTSIDE RECORDS SUMMARY | 2025-04-30 12:44 | XMS_ITS | Encounter Summary ---
Author Organization [facility] Address [address] [place] [address] Phone Care Team Providers Care Single Fold Machine Operator Name Role Phone Torres Vickers MD Unavailable [phone] Des Son MD Primary Care Provider [phone] Encounter Details Date Type Department Care Team (Late st Contact Info) Description 04/26/2025 Results Follow-Up [facility] Medicine Pulmonary [address] [facility] [address] 8th [place] [address] [place] [phone] Torres Vickers MD [address] [place] [address] CBC with auto differential, Differential, auto Social [...] materials from doctor or pharmacy Never 12/25/2023 Overall Financial Resource Strain (CARDIA) Answe r Date Recorded How hard is it for you to pa y for the very basics like food, housing, medical care, and heating? Not hard at all 12/24/2023 PHQ-2 Answer Date Recorded PHQ-2 Total Score (If total score is 3 or more points, staff should administer the PHQ-9) 0 07/06/2024 PRAPARE - Transportation Answer Date Re corded [...] place to sleep or slept in a assisted (including now)? No 12/24/2023 Humiliation, Afraid, Rape, and Kick questionnair e Answer Date Recorded Within the last year, have y ou been afraid of your partner or ex-partner? No 04/12/2025 Within the last year, have y ou been humiliated or emotionally abused in other ways by your partner or ex-partner? No Within the last year, have y ou been kicked, hit, slapped, or otherwise physically hurt by your partner or ex-partner? No 04/12/2025 Within the last year, have y ou been raped or forced to have any kind of sexual activity by your partner or ex-partner? No 04/12/2025 Social Connection and Isolation Panel Answer Date Recorded In a typical week, how many times do you talk on the phone with family, friends, or neighbors? More than three times a week 04/12/2025 How often do you get togethe r with friends or relatives? More than three times a week 04/12/2025 Attends Pentecostal Services Not on file 04/12 Active Member of Clubs or Organizations Not on f ile 04/12/2025 Attends Club or Organization Meetings Not on bryce e 04/12/2025 Marital Status Not on file 04/12/2025 AUDIT-C Answer Date Recorded Q1: How often do you have a drink containing alc ohol? Never 04/12/2025 Average Number of Drinks Not on file 025 Frequency of Binge Drinking Not on file 03/25 Overall Financial Resource Strain (CARDIA) Answe r Date Recorded How hard is it for you to pa y for the very basics like food, housing, medical care, and heating? Not hard at all 04/12/2025 [facility] Occupat ional Health - Occupational Stress Questionnaire Answer Date Recorded Do you feel stress - tense, restless, nervous, or anxious, or unable to sleep at night because your mind is troubled all the time - these days? Not at all 04/12/2025 Exercise Vital Sign Answer Date Recorde d On average, how many days pe r week do you engage in moderate to strenuous exercise (like a brisk walk)? 2 days Minutes of Exercise per Session Not on file 04/12/2025 Hunger Vital Sign Answer Date Recorded Within the past 12 months, y ou worried that your food would run out before you got the money to buy more. Never true 04/12/20 25 Within the past 12 months, t he food you bought just didn't last and you didn't have money to get more. Never true 04/12/2025 PRAPARE - Transportation Answer Date Re corded In the past 12 months, has l ack of transportation kept you from medical appointments or from getting medications? No 03/25 In the past 12 months, has l ack of transportation kept you from meetings, work, or from getting things needed for daily living? No 04/12/2025 Housing Stability Vital Sign Answer Chago e Recorded In the last 12 months, was t here a time when you were not able to pay the mortgage or rent on time? No 04/12/2025 Number of Times Moved in the Last Year Not on fi le 04/12/2025 At any time in the past 12 m [facility], were you homeless or living in a assisted (including now)? No 04/12/2025 [facility] Utilities Answer Date Recorded In the past 12 months has th e electric, gas, oil, or water company threatened to shut off services in your home? 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 Gender Identity Not on file Sexual Orientation Not on file Occupation Industry Job Start Date Job End Date [employer] Not on file Not on file Not on f ile documented as of this encounter Plan of Treatment Not on file documented as of this encounter Visit Diagnoses Not on filedocumented in this encounter Care Teams Single Fold Machine Operator Relationship Specialty Start Date End Date Des Son MD [address] [place] [address] [place] [id number] PCP - General Internal Medicine 07/06/24 Torres Vickers MD [address] [place] [address] Referring Physician Pulmonary Disease 12/15/23 documented as of this encounter
--- OUTSIDE RECORDS SUMMARY | 2025-04-30 12:44 | XMS_ITS | Clinical Summary ---
Author Organization [facility] [address] Address [address] [place] [address] Care Team Providers Care Financial Services Rep Name Role Phone Torres Vickers MD Unavailable Des Son MD Primary Care Provider [phone] Allergies No known active allergies Medications acetaminophen (TYLENOL) 325 mg tablet Take 2 tablets (650 mg total) by mouth every 4 (four) hours as needed for headaches or pain 30 tablet 3 Active triamcinolone (KENALOG) 0.1 % cream 4 Active Remodulin 10 mg/mL solution 4 Active torsemide (DEMADEX) 20 mg tablet Take 1 tablet (20 mg total) by mouth 2 (two) times a day 180 tablet 3 4 Active Opsumit 10 mg tablet TAKE 1 TABLET BY MOUTH DAILY. DO NOT HANDLE IF . DO NOT SPLIT, CRUSH, OR CHEW. REVIEW MEDICATION GUIDE. 30 tablet 11 4 Active Adcirca 20 mg tablet TAKE 2 TABLETS BY MOUTH 1 TIME A DAY 60 tablet 10 5 Active spironolactone (ALDACTONE) 100 mg tablet Take 1 tablet (100 mg total) by mouth daily 90 tablet 3 5 11/03/19 26 Active potassium chloride ER 20 mEq CR tablet Take 3 tablets (60 mEq total) by mouth daily 90 tablet 11 5 11/04/19 26 Active omeprazole (PriLOSEC) 40 mg capsule Take 1 capsule (40 mg total) by mouth daily 30 capsule 11 5 12/14/19 26 Active tirzepatide, weight loss, (ZEPBOUND) 2.5 mg/0.5 mL solution vial Inject 0.5 mL (2.5 mg total) under the skin every 7 days This medication record is used for ordering a prescription for Maya Direct Quarles 2 mL 1 5 Active Active Problems Problem Noted Date Diagnosed Date Well woman exam 04/12/2025 Overview (04/15/2025): Recommended screenings and preventive care discussed: Reviewed general breast health: Self Breast Exams Mammogram Annually after age 40: N/A Pap w/reflex HPV: 03/2025 Pap neg/HPV neg Gardasil Vaccine: > 26 yo NG/CT/Trich: Ordered HIV/HepC/RPR: Declined Contraception reviewed. Patient plans: S/p BTL, desires IUD Primary labs per PCP. Diet and exercise discussed. Calcium and vitamin D intake discussed. Osteoporosis with DEXA Scan: N/A Colonoscopy: N/A Follow up in 1 year of sooner if needed. Encounter for counseling regarding contraception 04/12/2025 Overview (04/12/2025): -Pt desires Mirena IUD placement to help with heavy periods -Plan to schedule, prior auth sent Routine general medical exam ination at a health care facility 07/06/2024 Assessment & Plan (07/06/2024 2:13 PM TISSUE TECHNICIAN): Patient uses seatbelt. Patient is not very physically active because of chronic shortness breath secondary to pulmonary hypertension. Discussed low calorie diet. Pamphlets were given. Patient does not smoke or drink alcohol. She had flu vaccine. She has an appointment to see capital markets specialist. MSSA bacteremia 12/16/2023 Assessment & Plan (01/02/2024 9:29 AM CDT): - On week 2.12/26 of Cefazolin 2g IV q8h for MSSA bacteremia - Bcx 12/14 + MSSA. CVC taken out 12/15, cx + MSSA, mixed. Bcx clear from 12/15. TTE without vegetations - Remains on Cefazolin 2g IV q8h and tolerating well. Denies fever, chills, night sweats, N/V, and diarrhea - The groin rash patient reached out for on 12/28 seems to be very mild on exam today without erythema, swelling, warmth, open wounds, or discharge. She stated it is very similar to what she has experienced under her panus and breasts in the past and seems to be more moisture related. Reiterated importance of keeping the skin clean and dry. Patient stated she picked up OTC hydrocortisone cream for the rash, which I recommended she use topical miconazole powder instead. Patient stating the rash has significantly improved since she first reached out with concern on 12/28 - She will remain on current abx regimen until planned EOT of 01/11. Will see patient back in clinic 01/15; if still doing well at that time, we can f/u PRN - Patient stated her Pulm team is wanting to keep the PICC in place to utilize for Remodulin IV, which we are fine with. We will transfer line care to them after 01/11 - Discussed the rationale for treatment, risk of recurrent infections, signs/symptoms of recurrent infection, and to contact ID clinic with any questions or concerns between now and his next visit RTC in 2 weeks Assessment & Plan (12/19/2023 1:08 PM CDT): The patient is a 28 y.o. female with PMH of idiopathic pTHN on teprostinil insufions through RIJ tunneled CVC who presented with sepsis and purulent drainage from line insertion site. In the ED she was febrile to 39.4, hypotensive. Labs without leukocytosis. Blood cultures 12/14 growing MSSA. Wound swab from line insertion site purulent drainage also growing MSSA. She was started on vancomycin and cefepime. IR consulted and had line removed with small amount of purulent fluid around the cuff. TTE did not show any vegetations, ongoing mod-severe TR (also present on 03/2023 TTE). TRACEY deferred due to pHTN and R-sided dysfunction. No other retained foreign bodies or hardware. CXR c/f septic pulmonary emboli, however, CT chest with contrast was not. Pt feeling good this morning other than R hand/wrist pain where infiltrated PIV was--notable warmth and erythema. Recommendations: - US R hand/wrist to evaluate for fluid collection. - Discontinue oxacillin. - Start cefazolin 2g IV q8h, duration will be 4 weeks from 12/15-01/11. - CBC with diff weekly, CMP weekly. - ID will sign off. Will see pt in ID clinic in 2 weeks. Will follow for US result. Heart failure 04/06/2023 Morbid obesity 03/30/2019 Pulmonary hypertension 03/30/2019 RENUKA (obstructive sleep apnea) Assessment & Plan (07/06/2024 2:14 PM TISSUE TECHNICIAN): She could not tolerate CPAP machine Assessment & Plan (04/27/2023 12:06 PM CDT): Pt to wear CPAP but has been inconsistent this hospitalization. Assessment & Plan (04/25/2023 10:16 AM CDT): -PSG 2019 with minimal settings; not compliant with home CPAP. -Overnight oximetry prior to discharge. Assessment & Plan (04/29/2023 11:04 AM CDT): -hx of non compliance with NIV. Has home unit EPAP max 6 cm H20/ EPAP min 4 cm H20 that she chooses not to wear at night. Overnight oxymetry 04/28 without significant desaturation. Ambulatory referral to sleep medicine ordered. Discussed with pulmonary Assessment & Plan (04/23/2023 1:00 PM CDT): Refusing nocturnal CPAP. -PSG 2019; not compliant with home CPAP -Sleep medicine referral at time of discharge for follow up. -Will consider overnight oximetry prior to discharge. Assessment & Plan (08/12/2019 2:25 PM TISSUE TECHNICIAN): The patient was diagnosed recently with obstructive sleep apnea and she is in the process of having CPAP machine Assessment & Plan (07/27/2019 2:22 PM TISSUE TECHNICIAN): Sleep study completed overnight 07/25. Be Pt with RENUKA, CPAP settings 4-6 cm H2O. - DME order placed for home CPAP Idiopathic PAH (pulmonary arterial hypertension) Assessment & Plan (04/29/2023 11:10 AM CDT): Pulmonary HTN team following and guiding treatment. Prior to admission patient was lost to follow up with limited access to medications 2/2 to insurance issues. Per Pulm HTN Attending note patient with IPAH, NYHA FC IV and refractory right- sided HF in HIGH risk category based on REVEAL-Lite score. She previously did well with SQ-Treprostinil but self-d/c'ed due to loss of insurance [place] Pt and dane got in Hospital and with his insurance patient became eligible for in-network coverage at [facility]. - She was initiated on parenteral Remoduli, uptitrated dose and currently at 15 ng/kg/min, will discharge on this dose. Started teaching/education for home Remodulin infusion at bedside on 04-26 and completed. On scheduled compazine po for management of nausea - Tadalafil 40mg daily - Diuretics spironolactone 100 mg daily, torsemide 20 mg po BID on 04/22 (previously IV bumex,discontinued when developed skin rash) - s/p Katz placement by IR 04-25 Resolved Problems Problem Noted Date Diagnosed Date Resolved Date Chronic diastolic (congestive) heart failure 4 10/28/2024 Assessment & Plan (07/06/2024 2:12 PM TISSUE TECHNICIAN): Patient is maintained on Aldactone and Lasix and low-salt diet and followed by the herbicide service sales representative Bacteremia due to methicilli n susceptible Staphylococcus aureus (MSSA) 12/20/2023 10/28/2024 Pruritus 04/23/2023 10/28/2024 Assessment & Plan (04/27/2023 10:29 AM CDT): C/o Itching, possible skin rash: On atarax 25 mg q 6 hours PRN Pulm recs change cetirizine 10 mg q day PRN to 20 mg q day scheduled on 04-24 with improvement Assessment & Plan (04/23/2023 1:02 PM CDT): Etiology unclear. -Possibly allergic Vs dry skin. Discontinued torsemide; encouraged skin lotion application. Hyperbilirubinemia 04/23/2023 Assessment & Plan (04/23/2023 6:46 PM CDT): Total bili 3.7 on admission, d bili 0.4, retic 1.6, LDH 427 /haptoglobin 184, RUQ US on 04/07 WNL. Suspect elevated bilirubin due to hepatic congestion from RHF. Trended and T bili improved down to 1.9 Physical deconditioning 04/23/2023 03/0 01/2025 Assessment & Plan (04/27/2023 6:09 PM CDT): -plan intensive rehab per PPCU protocol -04-23 ambulated 500 feet Hand held assist , 2 standing breaks -04-24 tolerated TM only shortly due to N?V with uptitration of remodulin -9-1 on Treadmill 17 minutes total, 8,6,3, at .5mph .Encourage rehab -9-3 on TM 14 minutes total, 5,5,4, at .5mph Acute on chronic right-sided heart failure 04/06/2023 10/28/2024 Assessment & Plan (04/24/2023 11:36 AM CDT): -Stop dobutamine and obtain lactate with AM labs. -Continue PO diuresis with spironolactone 100 mg daily and torsemide 20 mg po BID -Monitor lytes, daily wts and strict I/Os. -Fluid restriction. Assessment & Plan (04/28/2023 5:22 PM CDT): Presented with acute on chronic decompensated right heart failure in setting of medication noncompliance and limited access 2/2 to insurance issues,lost to follow for a couple years. -TTE - : Small LV cavity ,marked septal flattening. LVEF 56%.Marked RVE with mod dysfunction. Severe TR .PASP 28mmHg+RA pressure -Bubble study,limited ECHO 04-15: negative for right to left shunt (with and without Valsalva maneuver) - treated with IV diuretics and required Dobutamine drip. Improved after restarting pulmonary vasodilators and inotropic support. DRYING EQUIPMENT OPERATOR drip weaned as Remodulin uptitrated, stopped DRYING EQUIPMENT OPERATOR 8-31 am - Diuretics changed to po :currently torsemide 20 mg po BID, aldactone 100 mg po q day potassium 20 MEq po q day -Fluid restriction and monitor daily weights , daily BMP, supplement IV magnesium 9-3 and monitor Will need 6 min walking O2 assessment prior to d/c in PFTs lab Assessment & Plan (04/23/2023 1:21 PM CDT): -Continue dobutamine at 2.5 mcg/kg/min at this time as rehab efforts are getting started. -Continue PO diuresis with spironolactone 100 mg daily and torsemide 20 mg po BID -Monitor lytes, daily wts and strict I/Os. -Fluid restriction. Sleep apnea 03/19/2023 10/28/2024 Morbid obesity with BMI of 45.0-49.9, adult 08/12/2019 10/28/2024 Assessment & Plan (07/06/2024 2:13 PM TISSUE TECHNICIAN): Patient with morbid obesity. She has difficulty losing weight. Patient can not exercise because of chronic shortness breath. I am not sure if she is a good surgical candidate. I told her to ask her geospatial intelligence analyst and herbicide service sales representative. She tried diet and was not able to lose weight. She likes to try medications. We will start her on zepbound 2.5 mg subQ once a week and side effects were explained and if she is able to get the medication she will call us back in 1 month so that we can increase the dose to 5 mg subQ once a week. Assessment & Plan (08/12/2019 2:25 PM TISSUE TECHNICIAN): BMI Follow-up includes: nutrition counseling. The patient was advised to exercise 5 times a week for 30 minutes each time. We discussed low calorie diet. Discussed lifestyle changes. Nausea & vomiting 07/28/2019 10/28/2024 Assessment & Plan (07/29/2019 10:30 AM TISSUE TECHNICIAN): Patient with nausea and vomiting prior to admission controlled with zofran initially on admission, but yesterday with worsening nausea, vomiting x2 in the evening. This AM, improved with compazine and was able to tolerate PO. She has history of GERD type symptoms, but exam is benign without tenderness or RUQ pain. Some concern for reaction to prostacyclin infusion. - PO compazine 1st line, PO zofran 2nd line, IV zofran 3rd line anti-nausea - continue PO famotidine BID for baseline GERD-like symptoms Chest pain 07/15/2019 07/27/2019 Assessment & Plan (07/25/2019 10:56 PM TISSUE TECHNICIAN): Denied any chest pain Assessment & Plan (07/17/2019 12:58 PM TISSUE TECHNICIAN): Low suspicion at this time for ischemic CP but will obtain EKG, trop and BNP. Given chest tenderness on 07/09 when she presented to ER, this was likely MSK. Unclear if her CP on exertion which she says is burning is cardiac in nature. - EKG with sinus rhythm and no ischemic ST changes - initial trop I negative, NT-proBNP 668 from 1548 in 03/2019 - will continue to monitor Hoarseness 07/15/2019 10/28/2024 Assessment & Plan (07/18/2019 9:38 AM TISSUE TECHNICIAN): Developed 5 mo ago, similar time course as her dyspnea. Potentially compression of recurrent laryngeal by PA. - ENT c/s for eval of vocal cords by laryngoscopy showed L vocal cord dysfunction. This is characteristically seen in PAH given the course of L recurr laryng nerve. - Requesting records from [facility], will get chest CT to look for evidence of improvement. - EXTRUSION PROCESS OPERATOR eval no evidence of dysphagia or asp risk. Signed off, recommends no f/u. THOMPSON (dyspnea on exertion) 03/30/2019 Chest pressure 03/30/2019 10/28/2024 Encounters Date Type Department Care Team Description 04/26/2025 3:40 PM CDT Lab [place] [address] [place] [address] Idiopathic PAH (pulmonary arterial hypertension) (HCC); High risk medication use 04/26/2025 Results Follow-Up [facility] Medicine Pulmonary [address] [place] [address] Advanced Medicine 8th [place] [address] [place] [address] Torres Vickers MD CBC with auto differential, Differential, auto 04/26/[address] [facility] Pulmonary [address] [facility] 8th [place] [address] [place] [address] Elsa Holman RN 04/12/2025 5:29 PM CDT - 04/12/2025 11:59 PM CDT Hospital Encounter [address] [address] Well woman exam Discharge Disposition: Discharge to home or self care 04/12/2025 10:00 AM CDT Office Visit [facility] Clinic [address] [place] [address] 3rd Floor [address] [place] [id number] Jessi Zamudio NP Well woman exam (Primary Dx); Encounter for counseling regarding contraception 03/31/2025 Results Follow-Up [facility] Medicine Pulmonary [address] [facility] 8th [place] [address] [place] [address] Torres Vickers MD CBC with auto differential, Differential, auto 03/30/2025 2:20 PM CDT Lab [address] [address] Idiopathic PAH (pulmonary arterial hypertension) (HCC); High risk medication use 03/30/[address] [facility] Medicine Pulmonary [address] [facility] [address]th [place] [address] [place] [address] Elsa Holman RN Idiopathic PAH (pulmonary arterial hypertension) (HCC) (Primary Dx); High risk medication use 03/03/[address] [facility] Pulmonary [address] [facility] [address]th [place] [address] [place] [id number] Chantal Bingham, DONNA Annual wellness visit (Primary Dx) 03/01/2025 1:37 PM CDT - 03/01/2025 11:59 PM CDT Hospital Encounter [facility] [address] [place] [id number] Idiopathic pulmonary hypertensive arterial disease (HCC) Discharge Disposition: Discharge to home or self care 03/01/2025 1:25 PM CDT Lab [facility] ([facility]) [address] [place] [address] Idiopathic pulmonary hypertensive arterial disease (HCC); Chronic right-sided heart failure (HCC); High risk medication use; Iron deficiency anemia, unspecified iron deficiency anemia type 03/01/2025 12:30 PM CDT Office Visit [facility] Pulmonary [address] [facility] 8th [place] [address] [place] [address] Torres Vickers MD Idiopathic pulmonary hypertensive arterial disease (HCC) (Primary Dx); Chronic right-sided heart failure (HCC); High risk medication use; Iron deficiency anemia, unspecified iron deficiency anemia type 03/01/2025 12:00 PM CDT - 03/01/2025 11:59 PM CDT Hospital Encounter [facility] Pulmonary [address] [facility] [address] [place] [address] Idiopathic pulmonary hypertensive arterial disease (HCC) Discharge Disposition: Discharge to home or self care from Last 3 Months Immunizations Immunization Administration Dates Next Due DTP 01/26/1996, 6,05/16/1995,10/21 DTaP 07/03/1998 HPV, Quadrivalent 09/02/2012,12/24/2011,11/26/19 12 Hep A, Unspecified 12/24/2011 Hep B, Adolescent or Pediatric 1994,1993 Hep B, Unspecified 12/24/2011 HiB 01/26/1996, 6,05/16/1995,10/21 Influenza, Quadrivalent, Spl it, Intramuscular 06/18/2017,08/03/2015 Influenza, Trivalent, Cell Culture-based MDCK, Preservative Free, Antibiotic Free, Intramuscular 06/18/2024 Influenza, Unspecified 04/25/2019 MMR 07/03/1998,10/24/1995 OPV 07/03/1998, 6,10/24/1995,05/16,1994 Tdap 08/21/2017 Varicella 07/03/1998 Surgical History Surgery Date Site/Laterality Comments TUBAL LIGATION CARDIAC CATHETERIZATION 07/05/2019 TUNNELED LINE PLACEMENT > 5 YEARS 04/25/2023 N/A REMOVE TUNNELED LINE 12/16/2023 Left Medical History Medical History Date Comments History of hypertension Pulmonary hypertension (HCC) Hypertension during in third trimester CHF (congestive heart failure) (HCC) right sided MSSA bacteremia 12/15/2023 Idiopathic pulmonary hypertensive arterial disea se (HCC) Hoarseness 07/15/2019 Nausea & vomiting 07/28/2019 Morbid obesity with BMI of 45.0-49.9, adult (HCC ) 08/12/2019 Acute on chronic right-sided heart failure (HCC) 04/06/2023 Pruritus 04/23/2023 Hyperbilirubinemia 04/23/2023 Physical deconditioning 04/23/2023 Chronic diastolic (congestive) heart failure 07/2024 Routine general medical examination at a health care facility 07/06/2024 Chest pressure 03/30/2019 Morbid obesity (HCC) 03/30/2019 Sleep apnea 03/19/2023 Bacteremia due to methicilli n susceptible Staphylococcus aureus (MSSA) 12/20/2023 Family History Medical History Relation Name Comments No Known Problems Brother 2 No Known Problems Father Hypertension Mother Thyroid disease Mother No Known Problems Sister 5 Relation Name Status Comments Brother 2 Father Alive Mother Alive Sister 5 Social History Tobacco Use Types Packs/Day Years Used Date Smoking Tobacco: Never Smokeless Tobacco: Never Tobacco Cessation:Counseling Given: Not Answered Alcohol Use Standard Drinks/Week Comments Not Currently [...] place to sleep or slept in a senior living (including now)? No 12/24/2023 Humiliation, Afraid, Rape, [...] than three times a week 04/12/2025 Attends [employer] Not on file 04/12 Active Member [...] and heating? Not hard at all 04/12/2025 [facility] - Occupational Stress [...] any time in the past [address] [facility], were you homeless or living in a senior living (including now)? 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 Not on file Not on file Not on f ile Obstetrics History Para Term AB IAB SAB Ectopic Multiple Livin g Live Births 3 3 3 0 0 0 0 0 0 3 3 Date Outcome GA Total Labor Labor/2nd/3rd Weight Sex Type Anes PTL Sultana A1 A5 Name Clin 2011 Term F Vag-S pont Living 2013 Term F Vag-S pont Living 2017 Term F Vag-S pont Living Last Filed Vital Signs Vital Sign Reading Time Taken Comments Blood Pressure 122/60 04/12/2025 10:26 AM CDT Pulse 87 04/12/2025 10:26 AM CDT Temperature 36.3 C (97.4 F) 03/01/2025 12:33 PM CDT Respiratory Rate 18 03/01/2025 12:33 PM CDT Oxygen Saturation 99% 04/12/2025 10:26 AM CDT Inhaled Oxygen Concentration - - Weight 148 kg (326 lb 3.2 oz) 04/12/2025 10:26 A M CDT Height 167.6 cm (5' 6) 04/12/2025 10:26 AM CDT Body Mass Index 52.65 04/12/2025 10:26 AM CDT Plan of Treatment Health Maintenance Due Date Last Done Comments Varicella Vaccines (2 of 2 - 2-dose childhood series) 09/25/1998 07/03/1998 Pneumococcal vaccine <65 (1 of 2 - PCV) 2013 Covid-19 Vaccine (2 - 2024-2 6 season) 2025 01/24/2022 Influenza Vaccine (#1) 2025 , 04/25/2019, 06/18/2017, Additional history exists Depression Screening 07/06/2025 07/06/2024, 12/15/2023, 08/12/2019 Regular Well Visit/Exam 18-64 07/06/2025 07/06/2024 Cervical Cancer Screening 04/12/20262024, 04/12/2025, 11/23/2017 DTaP/Tdap/Td Vaccine (6 - Td or Tdap) 08/21/2027 08/21/2017, 07/03/1998, 01/26/1996, Additional history exists Hepatitis B Screening Completed 12/24/2011 , 1994, 1994 HPV Vaccines Completed 09/02/2012, 08/2011, 11/26/2011 Hepatitis C Screening Completed 04/07/2023 Procedures Procedure Name Priority Date/Time Associated Diagnosis Comments DIFFERENTIAL AUTO Routine 04/26/2025 3:5 7 PM CDT Idiopathic PAH (pulmonary arterial hypertension) (HCC) High risk medication use CBC WITH AUTO DIFFERENTIAL Routine 04/26/2025 3:57 PM CDT Idiopathic PAH (pulmonary arterial hypertension) (HCC) High risk medication use N. GONORRHOEAE/C. TRACHOMATIS AMPLIFICATION Routine 04/12/2025 11:04 AM CDT Well woman exam TRICHOMONAS VAGINALIS PCR Routine 04/12/2025 11:04 AM CDT Well woman exam PAP AND HIGH RISK HPV, REFLEX TO GENOTYPING Routine 04/12/2025 10:52 AM CDT Well woman exam HIGH RISK HPV DNA DETECTION WITH GENOTYPING Routine 04/12/2025 10:52 AM CDT Well woman exam DIFFERENTIAL AUTO Routine 03/30/2025 2:2 4 PM CDT Idiopathic PAH (pulmonary arterial hypertension) (HCC) High risk medication use CBC WITH AUTO DIFFERENTIAL Routine 03/30/2025 2:24 PM CDT Idiopathic PAH (pulmonary arterial hypertension) (HCC) High risk medication use MRI CARDIAC M&F WO CONTRAST Schedule Routine, Read Routine (OP Routine) 03/01/2025 4:05 PM CDT Idiopathic pulmonary hypertensive arterial disease (HCC) EGFR Routine 03/01/2025 1:30 PM CDT Idiopathic pulmonary hypertensive arterial disease (HCC) Chronic right-sided heart failure (HCC) High risk medication use DIFFERENTIAL AUTO Routine 03/01/2025 1:3 0 PM CDT Idiopathic pulmonary hypertensive arterial disease (HCC) Chronic right-sided heart failure (HCC) CBC WITH AUTO DIFFERENTIAL Routine 03/01/2025 1:30 PM CDT Idiopathic pulmonary hypertensive arterial disease (HCC) Chronic right-sided heart failure (HCC) FERRITIN Routine 03/01/2025 1:30 PM CDT Idiopathic pulmonary hypertensive arterial disease (HCC) Chronic right-sided heart failure (HCC) High risk medication use Iron deficiency anemia, unspecified iron deficiency anemia type COMPREHENSIVE METABOLIC PANEL Routine 03/01/2025 1:30 PM CDT Idiopathic pulmonary hypertensive arterial disease (HCC) Chronic right-sided heart failure (HCC) High risk medication use PRO B-TYPE NATRIURETIC PEPTIDE Routine 03/01/2025 1:30 PM CDT Idiopathic pulmonary hypertensive arterial disease (HCC) Chronic right-sided heart failure (HCC) High risk medication use PULMONARY FUNCTION TEST (PFT) Routine 03/01/2025 12:23 PM CDT Idiopathic pulmonary hypertensive arterial disease (HCC) HEPATITIS PANEL, ACUTE Routine 04/07/2023 2:48 PM CDT from Last 3 Months or Most Recently Relevant to Health Maintenance Results * Differential, auto (04/26/2025 3:57 PM CDT) Neutrophil abs 3.85 1.50 - 6.50 K/cumm Imm gran abs 0.04 0.00 - 0.10 K/cumm BECK Lymphocyte abs 2.27 0.80 - 3.30 K/cumm [facility] Monocyte abs 0.31 0.20 - 0.80 K/cumm [facility] Eosinophil abs 0.42 0.00 - 0.50 K/cumm [facility] Basophil abs 0.02 0.00 - 0.10 K/cumm [facility] Neutrophil pct 55.6 % [facility] Comment: Interpretive Data Percent cell count reference ranges are not reported, since discordance with absolute values may lead to misinterpretation of CBC data. Current Interpretive Data was last revised on 2017. Imm gran pct 0.6 % [facility] Comment: Interpretive Data Percent cell count reference ranges are not reported, since discordance with absolute values may lead to misinterpretation of CBC data. Current Interpretive Data was last revised on 2017. Lymphocyte pct 32.9 % [facility] Comment: Interpretive Data Percent cell count reference ranges are not reported, since discordance with absolute values may lead to misinterpretation of CBC data. Current Interpretive Data was last revised on 2017. Monocyte pct 4.5 % [facility] Comment: Interpretive Data Percent cell count reference ranges are not reported, since discordance with absolute values may lead to misinterpretation of CBC data. Current Interpretive Data was last revised on 2017. Eosinophil pct 6.1 % [facility] Comment: Interpretive Data Percent cell count reference ranges are not reported, since discordance with absolute values may lead to misinterpretation of CBC data. Current Interpretive Data was last revised on 2017. Basophil pct 0.3 % [facility] Comment: Interpretive Data Percent cell count reference ranges are not reported, since discordance with absolute values may lead to misinterpretation of CBC data. Current Interpretive Data was last revised on 2017. Blood 04/26/2025 3:57 PM CDT 04/26/2025 6:16 PM CDT us Torres Vickers MD LAB BLOOD ORDERABLES Liza ortiz Result [facility]ECK [address] [facility] Department [place] [address] * CBC with auto differential (04/26/2025 3:57 PM CDT) [facility] WBC 6.91 3.80 - 9.90 K/cumm Hgb 13.8 11.9 - 15.5 g/dL [facility] Hct 42.1 35.6 - 45.5 % [facility] Plt 356 150 - 400 K/cumm [facility] MPV 10.1 9.1 - 12.3 fL [facility] RBC 4.88 3.90 - 5.20 M/cumm [facility] MCV 86.3 81.3 - 96.4 fL [facility] MCH 28.3 27.1 - 33.3 pg [facility] MCHC 32.8 32.3 - 35.7 g/dL [facility] RDW CV 14.8 11.1 - 14.9 % [facility] RDW SD 46.5 35.7 - 48.1 fL [facility] NRBC abs 0.00 0.00 - 0.01 K/cumm [facility] Blood 04/26/2025 3:57 PM CDT 04/26/2025 6:16 PM CDT us Torres Vickers MD LAB BLOOD ORDERABLES Liza ortiz Result [facility] [address] [facility] Department [place] [address] * N. gonorrhoeae/C. trachomatis Amplification Vaginal (04/12/2025 11:04 AM CDT) [facility] C. trachomatis Not Detected [facility] N. gonorrhoeae Not Detected [facility] Comment: Interpretive Data This assay detects Chlamydia trachomatis and Neisseria gonorrhoeae by nucleic acid amplification testing (NAAT). This assay has been cleared by the [place] Food and Drug administration. The performance characteristics of this test have been verified by the [facility] Molecular Infectious Disease laboratory. The performance characteristics of this test have not been evaluated in individuals less than 14 years of age. Current Interpretive Data was last revised on 2023. Vaginal (None) 04/12/2025 11 :04 AM CDT 04/12/2025 12:39 PM CDT Jessi Zamudio NP LAB MICROBIOLOGY - GENERAL ORDERABLES Final Result Performing Organization Address [facility] Co de Phone Number [facility] Department [place] [address] [facility] * Trichomonas vaginalis PCR Vaginal (04/12/2025 11:04 AM CDT) Pathologist [facility] Trichomonas DNA Not Detected [facility] Comment: Interpretive Data This assay detects Trichomonas vaginalis by nucleic acid amplification testing (NAAT). This assay has been cleared by the [place] Food and Drug administration. The performance characteristics of this test have been verified by the [facility] Molecular Infectious Disease laboratory. The performance of this test has not been evaluated in individuals less than 18 years of age. Current Interpretive Data was last revised on 2023. Vaginal 04/12/2025 11:0 4 AM CDT 04/12/2025 12:39 PM CDT Jessi Zamudio NP LAB MICROBIOLOGY - GENERAL ORDERABLES Final Result Performing Organization Address [facility] Co de Phone Number [facility] [place] [facility] Department [place] [address] [facility] * High Risk HPV DNA Detection with Genotyping (Molecular component) (04/12/2025 10:52 AM CDT) Pathologist [facility] HPV HR 16 Not Detected Not Detected [facility] HPV HR 18 Not Detected Not Detected [facility] HPV HR Non 16/18 Not Detected Not Detected [facility] Comment: Interpretive Data Nucleic acid amplification for detection of high-risk Human Papilloma virus (HPV) is performed by the Kin Maria T 6800 HPV test. This assay specifically detects HPV-16 and HPV-18 genotypes. The following HPV genotypes are detected as high-risk HPV: HPV-31, 33, 35, ,39, 45, 51, 52, 56, 58, 59, 66, and 68. This assay has been approved by the [place] Food and Drug Administration for detection of HPV in cervical specimens collected by a physician using an endocervical brush/spatula or cervical broom and placed in the ThinPrep Pap Test PreservCyt collection containers. The performance characteristics of this test have been verified by the [facility] Molecular Infectious Disease laboratory. Correlate with separately reported cytology results, as applicable. Interpretive data last revised 23 Endocervical 04/12/2025 10:5 2 AM CDT 04/13/2025 2:04 PM CDT Narrative [facility] - 04/15/2025 9:32 AM CDT Clinical history and diagnosis->well woman exam Number of vials->1 Testing type->Screening Last menstrual period (date if known)->04/05/25 Contraceptive use->None Jessi Zamudio NP LAB BODY FLUIDS AN D STOOLS ORDERABLES Final Result [facility] Department [place] [address] [facility] * Pap and High Risk HPV and Genotyping (Cytology Component) (04/12/2025 10:52 AM CDT) Thin prep (Pap test) 04/12/2025 10:52 AM CDT 04/12/2025 5:07 PM CDT Narrative PATHOLOGY [facility] - 04/15/2025 2:00 PM CDT EPIC results best viewed via link to PDF [facility] [place] [address] Note to Patients: This report may contain a detailed description of human tissue sent by a health care provider to the laboratory for pathologic evaluation. The content of this report is essential for diagnosis and may provide important critical findings. This information may be unfamiliar to patients to review without a medical professional present. It is advised that the patient review this report in the presence of a health care provider who can answer questions and explain the details. CYTOPATHOLOGY REPORT FINAL Patient Name: MALACHI BARNES Gender: F : 1995 (Age: 29) Address: [address] [place] [address] Hospital #: [id number] Service: TELEGRAPH OFFICE ROUTE AIDE Location: Patient Type: [facility] SPECIMEN Taken: 04/12/2025 Received: 04/12/2025 Accessioned: 04/13/2025 Reported: 04/15/2025 Physician(s): Mounika Phan FINAL INTERPRETATION SOURCE OF SPECIMEN Liquid based Thin Prep pap with HPV: STATEMENT OF ADEQUACY - Satisfactory for evaluation - Endocervical cells/transformation zone sample present GENERAL CATEGORIZATION: - Negative for squamous intraepithelial lesion or malignancy Comments (Normal-Negative for High Risk HPV) HPV HR 16- Not detected HPV HR 18-Not detected HPV HR non 16/18- Not detected Interpretive Data Nucleic acid amplification for detection of high-risk Human Papilloma virus (HPV) is performed by the Kin Maria T 6800 HPV test. This assay specifically detects HPV- 16 and HPV-18 genotypes. The following HPV genotypes are detected as high-risk HPV: HPV-31, 33, 35, 39, 45, 51, 52, 56, 58, 59, 66, and 68. This assay has been approved by the [place] Food and Drug Administration for detection of HPV in cervical specimens collected by a physician using an endocervical brush/spatula or cervical broom and placed in the ThinPrep Pap Test PreservCyt collection containers. The performance characteristics of this test have been verified by the [facility] Molecular Infectious Disease laboratory. Correlate with reported cytology results, as applicable. Interpretive data last revised 02/14/23 ml/04/15/2025 14:[address] (ASCP) Report Electronically Reviewed and Signed Out By Massiel Rojas MS CT (ASCP) 04/15/2025 14:00:19 Cervicovaginal Cytology (Pap Test) Disclaimer: The Pap test is a screening test used to detect cervical cancer and its precursors; it is not a diagnostic procedure. False negative and false positive results do occur. Pap test results should be interpreted in the context of pertinent clinical information and biopsy results as indicated. CMS Clinical Laboratory Improvement Amendments (CLIA) mandate that cytologic and histologic results be correlated for laboratory quality technician & improvement standards. FOR ALL HIGH-GRADE CASES we request submission of follow-up histological material and/or reports that have not been previously provided so that we may fulfill said required standards. Gross Description A. Liquid based Thin Prep pap with HPV: Cervical/vaginal - Screening ThinPrep Clinical Diagnosis and History Last Menstrual Period: 04/05/25 Contraceptive History: No The patient is a 29 year old female with well woman exam. Report Images and scanned documents, if included only viewable in PDF version The performance characteristics of some immunohistochemical stains, in-situ hybridization and fluorescence in-situ hybridization tests and immunophenotyping by flow cytometry cited in this report (if any) were determined by the Surgical Pathology Department at [facility] as part of an ongoing quality improvement consultant program and in compliance with federally mandated regulations drawn from the Clinical Laboratory Improvement Act of 1988 (CLIA '88). Some of these tests rely on the use of analyte specific reagents and are subject to specific labeling requirements by the [place] Food and Drug Administration. Such diagnostic tests may only be performed in a facility that is certified by the Department of Health and Human Services as a high complexity laboratory under CLIA '88. The FDA has determined that such clearance or approval is not necessary. This test is used for clinical purposes. It should not be regarded as investigational or for research. Nevertheless, federal rules concerning the medical use of analyte specific reagents require that the following disclaimer be attached to the report: This test was developed and its performance characteristics determined by the Surgical Pathology Department of [facility]. It has not been cleared or approved by the U. S. Food and Drug Administration. Jessi Zamudio NP LAB CYTOLOGY ORDER LADI Final Result PATHOLOGY [facility] 3rd Floor [place], [place] [phone] * Differential, auto (03/30/2025 2:24 PM CDT) Neutrophil abs 3.57 1.50 - 6.50 K/cumm Imm gran abs 0.02 0.00 - 0.10 K/cumm [facility] Lymphocyte abs 1.88 0.80 - 3.30 K/cumm [facility] Monocyte abs 0.31 0.20 - 0.80 K/cumm [facility] Eosinophil abs 0.27 0.00 - 0.50 K/cumm [facility] Basophil abs 0.02 0.00 - 0.10 K/cumm [facility] Neutrophil pct 58.9 % [facility] Comment: Interpretive Data Percent cell count reference ranges are not reported, since discordance with absolute values may lead to misinterpretation of CBC data. Current Interpretive Data was last revised on 2017. Imm gran pct 0.3 % [facility] Comment: Interpretive Data Percent cell count reference ranges are not reported, since discordance with absolute values may lead to misinterpretation of CBC data. Current Interpretive Data was last revised on 2017. Lymphocyte pct 31.0 % [facility] Comment: Interpretive Data Percent cell count reference ranges are not reported, since discordance with absolute values may lead to misinterpretation of CBC data. Current Interpretive Data was last revised on 2017. Monocyte pct 5.1 % [facility] Comment: Interpretive Data Percent cell count reference ranges are not reported, since discordance with absolute values may lead to misinterpretation of CBC data. Current Interpretive Data was last revised on 2017. Eosinophil pct 4.4 % [facility] Comment: Interpretive Data Percent cell count reference ranges are not reported, since discordance with absolute values may lead to misinterpretation of CBC data. Current Interpretive Data was last revised on 2017. Basophil pct 0.3 % [facility] Comment: Interpretive Data Percent cell count reference ranges are not reported, since discordance with absolute values may lead to misinterpretation of CBC data. Current Interpretive Data was last revised on 2017. Blood 03/30/2025 2:24 PM CDT 03/30/2025 5:46 PM CDT us Torres Vickers MD LAB BLOOD ORDERABLES Liza ortiz Result [facility] [address] [facility] Department [place] [address] * CBC with auto differential (03/30/2025 2:24 PM CDT) WBC 6.07 3.80 - 9.90 K/cumm Hgb 12.0 11.9 - 15.5 g/dL [facility] Hct 36.5 35.6 - 45.5 % [facility] Plt 385 150 - 400 K/cumm [facility] MPV 9.9 9.1 - 12.3 fL [facility] RBC 4.22 3.90 - 5.20 M/cumm [facility] MCV 86.5 81.3 - 96.4 fL [facility] MCH 28.4 27.1 - 33.3 pg [facility] MCHC 32.9 32.3 - 35.7 g/dL [facility] RDW CV 14.0 11.1 - 14.9 % [facility] RDW SD 43.4 35.7 - 48.1 fL [facility] NRBC abs 0.00 0.00 - 0.01 K/cumm [facility] Blood 03/30/2025 2:24 PM CDT 03/30/2025 5:46 PM CDT Torres Vickers MD LAB BLOOD ORDERABLES Liza ortiz Result [facility]K [address] [facility] Department [place] [address] * MRI Cardiac M&F WO Contrast (03/01/2025 4:05 PM CDT) Anatomical Region Laterality Modality Body N/A Magnetic Resonan ce 03/02/2025 4:51 AM CDT Impressions 03/02/2025 4:51 AM CDT 1. Findings in keeping with idiopathic pulmonary arterial hypertension. Of note, the right ventricle is less dilated than it was on a prior CT examination of 12/19/2023. 2. Hypertrophied and mildly dilated right ventricle with a low ejection fraction 39%. 3. Low normal ejection fraction of a normal functioning left ventricle. Electronically signed by: Tony Perez M.D. Narrative 03/02/2025 4:51 AM CDT Examination: Magnetic resonance imaging of the heart without intravenous contrast HISTORY: Pulmonary hypertension TECHNIQUE: Standard multisequence multiplanar magnetic resonance imaging of the chest was performed with ECG gating. Images are performed according to pulmonary hypertension protocol. FINDINGS: Comparison is made to prior CT examination of 11/29/2023. No supraclavicular, axillary or mediastinal lymphadenopathy. No pleural or pericardial effusion. Again seen is cardiac enlargement. When compared to the prior CT examination, the right ventricle is slightly smaller. For example the diameter of the right ventricle at mid chamber measures 4.4 cm. On the prior CT examination measured 4.8 cm. The left ventricle diameter measures 5.2 cm when previously measured 4.4 cm. The main pulmonary artery previously measured 4.1 cm. Today it measures 3.9 cm. Mild groundglass intensities are seen with a bronchovascular distribution likely the sequela of vasodilator therapy. Mild separation of the fossa ovale may be indicative of an insignificant patent foramen ovale. No mitral regurgitation seen. There is no significant aortic or pulmonary valve regurgitation or stenosis. Very minimal tricuspid regurgitation is identified. Qualitatively there is no wall motion abnormality within the left ventricle the left ventricle functions normally. The right ventricle is mildly dilated mild right ventricular hypertrophy and note is made of a diastolic septal bounce in keeping with the patient's known history of pulmonary hypertension. The following quantitative measurements are obtained: Aortic flow: Forward flow 55 mL Backward flow 1.9 mL Regurgitant fraction 3.4% Peak velocity 135 cm/s for an estimated gradient of 7 mmHg Pulmonary flow Pulmonary flow: Forward flow 51 mL Backward flow 1 mL Regurgitant fraction 2% Peak flow velocity 76 cm/s for an estimated gradient of 2.3 mmHg Left ventricle: End-diastolic volume 185 mL (normalized 71.3 mL/sq m) End systolic volume 89 mL (normalized 34 mL/sq m) Stroke volume 96 mL Ejection fraction 52% Right ventricle: End-diastolic volume 235 mL (normalized 91 mL/sq m) End-systolic volume 144 mL (normalized 55 mL/sq m) Stroke volume 91 mL Ejection fraction 39% The T1 and T2 maps are normal. Procedure Note Tony Perez MD - 03/02/2025 Examination: Magnetic resonance imaging of the heart without intravenous contrast HISTORY: Pulmonary hypertension TECHNIQUE: Standard multisequence multiplanar magnetic resonance imaging of the chest was performed with ECG gating. Images are performed according to pulmonary hypertension protocol. FINDINGS: Comparison is made to prior CT examination of 11/29/2023. No supraclavicular, axillary or mediastinal lymphadenopathy. No pleural or pericardial effusion. Again seen is cardiac enlargement. When compared to the prior CT examination, the right ventricle is slightly smaller. For example the diameter of the right ventricle at mid chamber measures 4.4 cm. On the prior CT examination measured 4.8 cm. The left ventricle diameter measures 5.2 cm when previously measured 4.4 cm. The main pulmonary artery previously measured 4.1 cm. Today it measures 3.9 cm. Mild groundglass intensities are seen with a bronchovascular distribution likely the sequela of vasodilator therapy. Mild separation of the fossa ovale may be indicative of an insignificant patent foramen ovale. No mitral regurgitation seen. There is no significant aortic or pulmonary valve regurgitation or stenosis. Very minimal tricuspid regurgitation is identified. Qualitatively there is no wall motion abnormality within the left ventricle the left ventricle functions normally. The right ventricle is mildly dilated mild right ventricular hypertrophy and note is made of a diastolic septal bounce in keeping with the patient's known history of pulmonary hypertension. The following quantitative measurements are obtained: Aortic flow: Forward flow 55 mL Backward flow 1.9 mL Regurgitant fraction 3.4% Peak velocity 135 cm/s for an estimated gradient of 7 mmHg Pulmonary flow Pulmonary flow: Forward flow 51 mL Backward flow 1 mL Regurgitant fraction 2% Peak flow velocity 76 cm/s for an estimated gradient of 2.3 mmHg Left ventricle: End-diastolic volume 185 mL (normalized 71.3 mL/sq m) End systolic volume 89 mL (normalized 34 mL/sq m) Stroke volume 96 mL Ejection fraction 52% Right ventricle: End-diastolic volume 235 mL (normalized 91 mL/sq m) End-systolic volume 144 mL (normalized 55 mL/sq m) Stroke volume 91 mL Ejection fraction 39% The T1 and T2 maps are normal. IMPRESSION: 1. Findings in keeping with idiopathic pulmonary arterial hypertension. Of note, the right ventricle is less dilated than it was on a prior CT examination of 12/19/2023. 2. Hypertrophied and mildly dilated right ventricle with a low ejection fraction 39%. 3. Low normal ejection fraction of a normal functioning left ventricle. Electronically signed by: Tony Perez M.D. Torres Vickers MD IMBrianne MRI PROCEDURES Final Result * eGFR (03/01/2025 1:30 PM CDT) eGFR >90 >=60 mL/min/1. 73 m2 Comment: Interpretive Data Reference Interval Normal >/= 90 mL/min/1.73m2 Mildly decreased* 60 - 89 mL/min/1.73m2 Mildly to moderately decreased 45 - 59 mL/min/1.73m2 Moderately to severely decreased 30 - 44 mL/min/1.73m2 Severely decreased 15 - 29 mL/min/1.73m2 Kidney Failure < 15 mL/min/1.73m2 *Relative to young adult level Estimated glomerular filtration rate is determined by the 2020 CKD-EPI equation recommended by the National Kidney [employer] (A Unifying Approach to GFR Estimation: Recommendations of the NKF-ASK Task Force on Reassessing the Inclusion of Race in Diagnosing Kidney Disease, JASN 2020). The CKD-EPI equation should not be used for patients with unstable renal function and has not been validated in children and those over 70. Current interpretive data was last reviewed 2021. Blood 03/01/2025 1:30 PM CDT 03/01/2025 2:08 PM CDT us Torres Vickers MD LAB BLOOD ORDERABLES Liaz ortiz Result [facility] Department [place] [address] * Differential, auto (03/01/2025 1:30 PM CDT) [facility] Neutrophil abs 4.42 1.50 - 6.50 K/cumm Imm gran abs 0.02 0.00 - 0.10 K/cumm [facility] Lymphocyte abs 1.66 0.80 - 3.30 K/cumm [facility] Monocyte abs 0.30 0.20 - 0.80 K/cumm [facility] Eosinophil abs 0.16 0.00 - 0.50 K/cumm [facility] Basophil abs 0.02 0.00 - 0.10 K/cumm [facility] Neutrophil pct 67.2 % [facility] Comment: Interpretive Data Percent cell count reference ranges are not reported, since discordance with absolute values may lead to misinterpretation of CBC data. Current Interpretive Data was last revised on 2017. Imm gran pct 0.3 % [facility] Comment: Interpretive Data Percent cell count reference ranges are not reported, since discordance with absolute values may lead to misinterpretation of CBC data. Current Interpretive Data was last revised on 2017. Lymphocyte pct 25.2 % [facility] Comment: Interpretive Data Percent cell count reference ranges are not reported, since discordance with absolute values may lead to misinterpretation of CBC data. Current Interpretive Data was last revised on 2017. Monocyte pct 4.6 % [facility] Comment: Interpretive Data Percent cell count reference ranges are not reported, since discordance with absolute values may lead to misinterpretation of CBC data. Current Interpretive Data was last revised on 2017. Eosinophil pct 2.4 % [facility] Comment: Interpretive Data Percent cell count reference ranges are not reported, since discordance with absolute values may lead to misinterpretation of CBC data. Current Interpretive Data was last revised on 2017. Basophil pct 0.3 % [facility] Comment: Interpretive Data Percent cell count reference ranges are not reported, since discordance with absolute values may lead to misinterpretation of CBC data. Current Interpretive Data was last revised on 2017. Blood 03/01/2025 1:30 PM CDT 03/01/2025 1:55 PM CDT us Torres Vickers MD LAB BLOOD ORDERABLES Liza ortiz Result [facility] Department [place] [address] * Pro B-type natriuretic peptide (03/01/2025 1:30 PM CDT) NT-proBNP <50 <=300 pg/mL Comment: Interpretive Comments: A. Dyspnea in Acute Care Setting All Ages: < 300 pg/ml, acute heart failure unlikely. < 50 yrs: 300 - 450 pg/ml, further investigation warranted. > 450 pg/ml, acute heart failure likely. 50 - 74 yrs: 300 - 900 pg/ml, further investigation warranted. > 900 pg/ml, acute heart failure likely . > or = 75 yrs: 450 - 1800 pg/ml, further investigation warranted. > 1800 pg/ml, acute heart failure likely. B. Non-acute Setting < 75 yrs < 125 pg/ml, rules out heart failure. > or = 125 pg/ml, further investigation warranted. > or = 75 yrs < 450 pg/ml, rules out heart failure. > or = 450 pg/ml, further investigation warranted. - Knowledge of each individual patient's NT-proBNP range may be more useful than using similar cut-points for every patient. Please note that marked elevations in NT-proBNP levels may be observed in state other than Left Ventricular Congestive Failure, including: acute coronary syndromes, right heart strain/failure (including pulmonary embolism and cor pulmonale), critical illness, renal failure, as well as advanced age. - References: 1. Jacinta CARNEY et.al. Eur Heart J. 2006:27:330-337. 2. Clotilde RW, Peggy SALINAS. J. AM Boy Cardiol: Cardiovasc Imag. 2009;2: 216- 225. Interpretive Data Last Revised Date: 2018. Blood 03/01/2025 1:30 PM CDT 03/01/2025 1:55 PM CDT us Torres Vickers MD LAB BLOOD ORDERABLES Liza ortiz Result [facility] Department [place] [address] * (ABNORMAL) CBC with auto differential (03/01/2025 1:30 PM CDT) Pathologist [facility] WBC 6.58 3.80 - 9.90 K/cumm Hgb 11.3(L) 11.9 - 15.5 g/dL [facility] Hct 34.2(L) 35.6 - 45.5 % [facility] Plt 287 150 - 400 K/cumm [facility] MPV 9.7 9.1 - 12.3 fL [facility] RBC 4.00 3.90 - 5.20 M/cumm [facility] MCV 85.5 81.3 - 96.4 fL [facility] MCH 28.3 27.1 - 33.3 pg [facility] MCHC 33.0 32.3 - 35.7 g/dL [facility] RDW CV 14.0 11.1 - 14.9 % [facility] RDW SD 43.6 35.7 - 48.1 fL [facility] NRBC abs 0.00 0.00 - 0.01 K/cumm [facility] Blood 03/01/2025 1:30 PM CDT 03/01/2025 1:55 PM CDT Torres Vickers MD LAB BLOOD ORDERABLES Liza l Result Performing Organization Address City/[facility]/ZIP Co de Phone Number [facility] Department [place] [address] * Ferritin (03/01/2025 1:30 PM CDT) [facility] Ferritin 109 13 - 150 ng/mL Blood 03/01/2025 1:30 PM CDT 03/01/2025 1:55 PM CDT Torres Vickers MD LAB BLOOD ORDERABLES Liza l Result Performing Organization Address City/[facility] Co de Phone Number [facility] Department [place] [address] * Comprehensive metabolic panel (03/01/2025 1:30 PM CDT) [facility] Sodium 138 135 - 145 mmol/L Potassium, pl 3.6 3.3 - 4.9 mmol/L [facility] Chloride 104 97 - 110 mmol/L [facility] CO2 25 22 - 32 mmol/L [facility] Anion gap 9 2 - 15 mmol/L [facility] BUN 7 6 - 25 mg/dL [facility] Creatinine 0.61 0.60 - 1.10 mg/dL [facility] Glucose 84 70 - 199 mg/dL [facility] Comment: Interpretive Data Fasting glucose >/= 126 mg/dl is diagnostic for diabetes. Fasting is defined as no caloric intake for at least 8 hours. Fasting glucose between 100 mg/dl to 125 mg/dl is diagnostic of prediabetes. In a patient with classic symptoms of hyperglycemia or hyperglycemic crisis, a random glucose >/= 200 mg/dl is diagnostic for diabetes. In the absence of unequivocal hyperglycemia, results should be confirmed by repeat testing. The classification and Diagnosis of Diabetes Diabetes Care 2021; 46: S19-S40. Current interpretive data was last revised 2022. Calcium 8.7 8.5 - 10.3 mg/dL [facility] Bilirubin, total 1.1 0.1 - 1.2 mg/dL [facility] Protein, pl 8.0 6.5 - 8.5 g/dL [facility] Albumin 4.0 3.5 - 5.0 g/dL [facility] Alk phos 89 40 - 130 Units/L [facility] ALT 10 7 - 45 Units/L [facility] AST 15 10 - 45 Units/L [facility] Blood 03/01/2025 1:30 PM CDT 03/01/2025 1:55 PM CDT us Torres Vickers MD LAB BLOOD ORDERABLES Liza ortiz Result [facility] Department [place] [address] * Pulmonary Function Test -[facility] U Adult PFT Lab- CAM-8D; Walk for Distance (03/01/2025 12:23 PM CDT) Anatomical Region Laterality Modality PFT Narrative 03/01/2025 4:19 PM CDT Table formatting from the original result was not included. [facility] Division of Pulmonary & Critical Care Medicine [address] [place] [address]; [address]; [place] [address]; [phone] Pulmonary Function Laboratory Pulmonary Stress Test Simple/Oxygen Assessment Patient: Malachi Barnes Date: 03/01/2025 : 1995 Ht: 66 IN Wt: 320 LBS Time (min) Distance (ft)/ Banuelos O2 L/M SpO2 HR Gilberto* BP FEV1 % Pred Rest: RA 98 105 0 134/86 2.31 69 % Walk/Bike: 1 RA 95 115 0 2 RA 93 125 1 3 RA 92 127 1 4 RA 91 129 1 5 RA 90 131 1 6 min 0 sec RA 90 132 1 Recovery: 1 RA 98 109 0 141/82 2.29 69% 3 RA 98 107 *Gilberto rate of perceived exertion (1-10 dyspnea scale) Kulwinder, CHEST 2003; 123:1408 Walk Test Summary: Six Minute Walk Distance: 1200 ft Six-minute Walk Work [distance (m) x body wt (kg)]: 07659 kg.m (normal >60,000kg.m) Oxygen required to maintain SpO2 greater than 90% during six minutes of walkin L/M Comments: WFD-0 STOPS Interpretation: Breathing room air, SpO2 is normal at rest and during exercise sufficient to increase pulse, SpO2 falls but remains normoxemic . On this basis, SpO2 is adequate at rest breathing room air and while walking breathing room air. This level of exercise is associated with no significant change of FEV1. By signing this report, the attending pulmonary physician certifies that he/she has personally reviewed and interpreted the graphic and numerical data associated with this pulmonary function study and has reviewed and /or edited a preliminary draft report and agrees with the written final report. Cecelia Thacker NP PFT ORDERABLES Final Res ult * Hepatitis panel, acute (04/07/2023 2:48 PM CDT) Hep A IgM Nonreactive Nonreactive [facility] Hep B core IgM Nonreactive Nonreactive [facility] Hep C Ab Nonreactive Nonreactive [facility] Comment:Antibodies to HCV no t detected. Does NOT exclude the possibility of recent exposure to HCV. Current interpretive data was last revised on 22 HepBsAg Nonreactive Nonreactive [facility] Blood 04/07/2023 2:48 PM CDT 04/07/2023 3:26 PM CDT us Barbara Moya MD LAB MICROBIOLOGY - GENERA L ORDERABLES Final Result [facility] [place] [address] from Last 3 Months or Most Recently Relevant to Health Maintenance Insurance Recurve CHOICE [facility] Advance Directives For more information, please contact: [phone] * Full Code (Latest Code Status on File) Date Activated Date Inactivated Comments 01/27/2024 9:20 PM 01/29/2024 6:36 PM * Full Code Date Activated Date Inactivated Comments 12/16/2023 7:38 AM 12/22/2023 7:53 PM * Full Code Date Activated Date Inactivated Comments 04/07/2023 1:53 PM 04/29/2023 8:05 PM * Full Code Date Activated Date Inactivated Comments 07/25/2019 6:44 PM 07/29/2019 7:41 PM * Full Code Date Activated Date Inactivated Comments 07/15/2019 4:59 PM 07/19/2019 5:05 PM Care Teams Financial Services Rep Relationship Specialty Start Date End Date Des Son MD [address] [facility] [place] [address] PCP - General Internal Medicine 07/06/24 Torres Vickers MD [address] [place] [address] Referring Physician Pulmonary Disease 12/15/23
--- OUTSIDE RECORDS SUMMARY | 2025-04-30 12:44 | XMS_ITS | Encounter Summary ---
Author Organization [facility] Address [address] [place] [address] Phone Care Team Providers Care Architectural Examiner Name Role Phone Unknown, Notinfile Primary Care Provider Unavail able Unknown, Notinfile Primary Care Provider Unavail able Des Son MD Primary Care Provider [phone] No, Physician Primary Care Provider [phone] Torres Vickers MD Unavailable [phone] Ebony Valencia FISHER LOBSTER Unavailable [phone] Bj Correia MD Primary Care Provider [phone] Gladys Castelan RN Unavailable [phone] Des Son MD Primary Care Provider [phone] Encounter Details Date Type Department Care Team (Latest Contact Info) Description 07/13/2019 Orders Only [facility] Scanning, Provider Social History Tobacco Use Types Packs/Day Years Used Date Smoking Tobacco: Never Smokeless Tobacco: Never Comments No Sex and Gender Information Value Date Recorded Sex Assigned at Not on file 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 Gender Identity Not on file Sexual Orientation Not on file documented as of this encounter Plan of Treatment Not on file documented as of this encounter Procedures Procedure Name Priority Date/Time Associated Diagnosis Comments SCAN - LABS 07/13/2019 documented in this encounter Results * SCAN - LABS (07/13/2019) us Provider Scanning Final Result documented in this encounter Visit Diagnoses Not on filedocumented in this encounter Additional Health Concerns Infection Onset Date Last Indicated Resolved Time COVID: Suspected 12/15/2023 12/15/2023 12/15/2023 6:27 PM CDT documented as of this encounter Care Teams Architectural Examiner Relationship Specialty Start Date End Date Unknown, Notinfile PCP - General 03/29/19 07/24/19 Unknown, Notinfile PCP - General 07/25/19 08/11/19 Des Son MD [address] [facility] [address] [place] [address] [place] [address] PCP - General Internal Medicine 08/12/19 09/04/23 No, Physician PCP - General 09/05/23 01/26/24 Bj Correia MD [facility] [place] [address] PCP - General Internal Medicine 01/27/24 07/05/24 Des Son MD [facility] [address] [place] [address] [place] [address] PCP - General Internal Medicine 07/06/24 Torres Vickers MD [address] [place], [place] [id number] Referring Physician Pulmonary Disease 12/15/23 Ebony Valencia, FISHER LOBSTER [address] [facility] Mailstop [phone] [place] [address] [facility] Outpatient Care Coordination Manager 12/23/23 01/20/24 Gladys Castelan, DONNA [address] [facility] [address] [place], [place] [id number] SHOP Outpatient Care Coordination Manager 01/30/24 02/02/24 documented as of this encounter
[2025-04-30] MEDS: CYCLOBENZAPRINE HCL 10 MG TABLET PO (13:07)
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
[2025-04-30 15:07] VITALS: BP 147/85; PULSE 85; RESP 18; O2SAT 100
== END 2025-04-30 15:48 | disposition home or self-care (01) ==
PROVIDERS: Emergency Provider Emergency Medicine; PCP Internal Medicine
DX: S16.1XXA Strain of muscle, fascia and tendon at neck level, initial encounter (principal); S50.01XA Contusion of right elbow, initial encounter; S80.02XA Contusion of left knee, initial encounter; S60.212A Contusion of left wrist, initial encounter; S29.9XXA Unspecified injury of thorax, initial encounter; S39.92XA Unspecified injury of lower back, initial encounter; I27.20 Pulmonary hypertension, unspecified; R60.9 Edema, unspecified; V49.40XA Driver injured in collision with unspecified motor vehicles in traffic accident, initial encounter
CPT/HCPCS: 72040; 72070; 72100; 73030; 73080; 73110; 73562; 99284; A9270; L0140

== ENCOUNTER 2025-06-08 09:34 | Emergency (ER) | payer OTHER, SELFPAY ==
--- NOTE | 2025-06-08 09:37 | ED.GENADULT ---
HPI - General Adult General Chief complaint: Upper Respiratory Infection Stated complaint: sinus congestion Source: patient Mode of arrival: ambulatory Limitations: no limitations History of Present Illness HPI narrative: Pt is a 29 y/o female presenting with c/o sinus congestion. Additional sx reported include facial pressure, headache, bodyaches, voice hoarseness, esequiel otalgia (R>L). Sx began 1 week ago. Sx mildly improve with OTC sinus medication. No known exposure to COVID, STREP,FLU,PNA. No additional complaints. Related Data Home Medications ?Medication ?Instructions ?Recorded ?Confirmed ?Last Taken ?Type macitentan 10 mg tablet (Opsumit) mg PO 07/16/20 Unknown History spironolactone 25 mg tablet 25 mg PO BID 07/16/20 07/17/20 Unknown History (Aldactone) tadalafil (pulm. hypertension) 20 20 mg PO BID 07/16/20 07/17/20 Unknown History mg tablet (pulmonary hypertension) (Adcirca) treprostinil sodium 10 mg/mL 10 mg 07/16/20 Unknown History injection solution (Remodulin) torsemide 20 mg tablet mg 06/08/25 Unknown History Allergies Allergy/AdvReac Type Severity Reaction Status Date / Time No Known Allergies Allergy Verified 06/08/25 09:54 Review of Systems Review of Systems: CONSTITUTIONAL: Reports body aches,denies fever, chills, or sweats. EYES: Denies visual changes, redness, or discharge. ENT: reports congestion, facial pressure, esequiel. otalgia, Denies rhinorrhea, sore throat CARDIOVASCULAR: Denies chest pain, palpitations, or edema. RESPIRATORY: Denies cough or dyspnea. GASTROINTESTINAL: Denies abdominal pain, nausea, vomiting, or diarrhea. GENITOURINARY: Denies dysuria or hematuria. SKIN: Denies rash, itching, or wounds. MUSCULOSKELETAL: Denies back pain, joint pain, or myalgia. NEUROLOGIC: Reports headache, denies numbness, tingling, or weakness. PSYCH: Denies depression or anxiety. All systems reviewed & are unremarkable except as noted in HPI and below PMFSH Past Medical History Medical History Chronic edema Pulmonary hypertension Family History Family History Mother Thyroid cancer Social History Social History Smoking status: Never smoker Second hand tobacco smoke exposure: No Alcohol intake: never Substance use: never Gender identity (if verbalized by the patient): Female Spiritual care concerns: No Exam Narrative: GENERAL: Well-appearing, well-nourished, and in no acute distress. HEAD: Normocephalic, atraumatic. EYES: EOMI. No redness or drainage. Conjunctivae normal. ENT: Mucous membranes pink and moist. Nares clear. R. nasal mucosa is dry, cracked. No rhinorrhea. R TM is bulging, erythematous, L TM normal. Esequiel. auditory canals are WNL. No mastoid tenderness. Tonsils are 3+ bilaterally with erythema, without exudate or lesions. Uvula midline. Esequiel. maxillary sinuses are TTP without edema, erythema. NECK: Normal AROM. Supple. No lymphadenopathy. CHEST: No respiratory distress. Clear to auscultation. HEART: Regular rate and rhythm. No murmur appreciated. Normal peripheral pulses. EXTREMITIES: Normal range of motion. No edema. SKIN: Warm, dry, no rash. Capillary refill normal. Normal skin turgor. NEURO: No focal deficits. Alert and oriented x3. Gait steady. PSYCH: Normal affect. No signs of depression or anxiety. Course Course Level of Care: Express Care Visit Vital Signs Vital signs: Vital Signs Temperature 97.9 F 06/08/25 09:45 Pulse Rate 99 06/08/25 09:45 Respiratory Rate 18 06/08/25 09:45 Blood Pressure 121/70 06/08/25 09:45 Pulse Oximetry 99 06/08/25 09:45 Oxygen Delivery Room Air 06/08/25 09:45 Temperature 97.9 F 06/08/25 09:45 Pulse Rate 99 06/08/25 09:45 Respiratory Rate 18 06/08/25 09:45 Blood Pressure 121/70 06/08/25 09:45 Pulse Oximetry 99 06/08/25 09:45 Oxygen Delivery Room Air 06/08/25 09:45 Medical Decision Making MDM Narrative Medical decision making narrative: No throat culture sent at pt is being d/c with augmentin for other dx. Vital Signs Vital Signs: Vital Signs Temperature 97.9 F 06/08/25 09:45 Pulse Rate 99 06/08/25 09:45 Respiratory Rate 18 06/08/25 09:45 Blood Pressure 121/70 06/08/25 09:45 Pulse Oximetry 99 06/08/25 09:45 Oxygen Delivery Room Air 06/08/25 09:45 Temperature 97.9 F 06/08/25 09:45 Pulse Rate 99 06/08/25 09:45 Respiratory Rate 18 06/08/25 09:45 Blood Pressure 121/70 06/08/25 09:45 Pulse Oximetry 99 06/08/25 09:45 Oxygen Delivery Room Air 06/08/25 09:45 Lab Data Lab results reviewed: Yes I reviewed the patient's lab results. Lab results narrative: GABDARRICK neg Labs: Lab Results 06/08/25 Range/Units 09:59 POC Grp A Strep Screen Negative (Negative) Discharge Plan Discharge Clinical Impression: Sinusitis Qualifiers: Sinusitis location: maxillary Chronicity: acute Recurrence: non-recurrent Qualified Code(s): J01.00 - Acute maxillary sinusitis, unspecified Otitis media Qualifiers: Otitis media type: suppurative Chronicity: acute Laterality: right Recurrence: non-recurrent Spontaneous tympanic membrane rupture: without spontaneous rupture Qualified Code(s): H66.001 - Acute suppurative otitis media without spontaneous rupture of ear drum, right ear Patient Disposition: Home Condition: Stable Instructions: Antibiotic Form Additional Instructions: Go straight to ER should your symptoms become worse or should any new symptoms develop Patient Language: Korean Prescriptions: New amoxicillin-pot clavulanate 875-125 mg tablet 1 tablet PO Q12H 7 Days Qty: 14 0RF No Action torsemide 20 mg tablet spironolactone [Aldactone] 25 mg tablet 25 mg PO BID treprostinil sodium [Remodulin] 10 mg/mL solution 10 mg Patient Comments: Pt. states she takes this medication however, pts. preferred pharmacy has no documentation of this prescription filled. Opsumit 10 mg tablet 10 mg PO Patient Comments: Pt. states she takes this medication however, pts. preferred pharmacy has no documentation of this prescription filled. tadalafil (pulm. hypertension) [Adcirca] 20 mg tablet 20 mg PO BID Patient Comments: Pt. states she takes this medication however it has not been filled since july per pts preferred pharmacy. cyclobenzaprine 10 mg tablet 10 mg PO TID PRN (Reason: muscle spasm) Qty: 21 0RF Follow-up/Referrals: Adelaida,Des Perez MD [Primary Care Provider, Unknown] - 06/09/25 Stand Alone Forms: Work/School Release IP Time of Disposition: 09:50
[2025-06-08 09:45] VITALS: BP 121/70; PULSE 99; RESP 18; TEMP 36.6; O2SAT 99
[2025-06-08 10:03] LABS: EDSTREPNEGPOS1 Negative (Negative)
== END 2025-06-08 09:59 | disposition home or self-care (01) ==
PROVIDERS: Emergency Provider Registered Nurse; PCP Internal Medicine
DX: J01.00 Acute maxillary sinusitis, unspecified (principal); H66.001 Acute suppurative otitis media without spontaneous rupture of ear drum, right ear; I10 Essential (primary) hypertension
CPT/HCPCS: 87880; 99213; G0463